=== PATIENT | female | born 1950 | race Caucasian/White ===

== ENCOUNTER 2017-01-06 21:11 | Observation (INO) | payer MEDICARE ==
[2017-01-06] MEDS ORDERED: DUONEB 0.5-3 MG/3 ml Neb IH ONE ×2 (21:25→21:33)
[2017-01-06] MEDS: Sodium Chloride 0.9% 1000 ML 1,000 ML IV SCH (21:32)
[2017-01-06 21:49] LABS: Mean Cell Volume 99.5 fl (78-100); Mean Corpuscular Hemoglobin 32.5 pg (26-32); Mean Platelet Volume 10.6 fl (6-9.5); Platelet Count 215 K/mm3 (150-450); Red Blood Count 4.15 M/mm3 (4.1-5.4); White Blood Count 23.7 K/mm3 (4.0-10.5)
[2017-01-06 22:02] LABS: BLOOD UREA NITROGEN 15 mg/dL (9-20); CHLORIDE 100 mEq/L (98-107); Carbon Dioxide 25.2 mEq/L (21-32); Glucose 116 MG/DL (70-110); Potassium 3.5 mEq/L (3.5-5.1); SODIUM 137 mEq/L (136-145)
[2017-01-06] MEDS ORDERED: Zofran 4 MG/2 ML VIAL IV ONE (22:15)
[2017-01-06] MEDS ORDERED: TORAdol 30 mg Injection IV ONE (22:15)
[2017-01-06] MEDS ORDERED: TORAdol 30 mg Injection ONE (22:19)
[2017-01-06] MEDS ORDERED: Zofran 4 MG/2 ML VIAL ONE (22:19)
--- NOTE | 2017-01-06 22:21 | ERPHSYRPT ---
- History of Present Illness Time Seen by Provider: 01/06/17 21:17 Source: patient, family, old records Exam Limitations: no limitations Patient Subjective Stated Complaint: isreal has had acough feels like its in her lungs, has had bottom lobe on right side of lung removed. states shes been coughing so hard its making her back hurt. patient has chronic back pain from pre-existing conditions with her back. Triage Nursing Assessment: pt alert nad orietned x3, able to ambulate well, gait is steady, intermittant coughing, lungs sounds diminished, pupils perrla2, pulses equal bilat radius, skin clean, dry, and intact, bowel sounds x4, pedal pulses present bilateral. Physician History: patient with increasing cough; now associated with pain and N&V with coughing paroxysm; no hemoptosis; no fever; no chills' ; no travel or exposures; ; still smokes some; heavy smoker; no fever; no chills; no DVT; Timing/Duration: week(s) (1-2), intermittent, gradual onset, worse Cough Quality/Degree: moderate, dry cough, productive cough (occasional tucker or yellow) Possible Cause: frequent episodes, chronic episodes, smoke exposure Modifying Factors: Improves With: albuterol inhaler, albuterol nebulizer, coughing Associated Symptoms: chest pain/soreness, cough, shortness of breath International travel in last 2 weeks: No Allergies/Adverse Reactions: tapentadol HCl [From Nucynta] Adverse Reaction (Severe, Verified 01/29/16 09:05) disoriented states "took for severe arthritis,fever,confusion,couldn't sleep" Home Medications: Levothyroxine Sodium 125 Mcg [Synthroid 125 Mcg] 125 mcg PO DAILY 06/08/13 [History] Venlafaxine HCl ER 75 mg [Effexor XR 75 MG] 150 mg PO DAILY 06/08/13 [ History] Fluticasone/Salmeterol [Advair 100-50 Diskus] 1 each IH BID 08/26/13 [History] Alprazolam 0.25 mg [xanAX 0.25 MG] 0.25 mg PO TID 10/12/15 [History] Fluticasone Propionate [Flonase NASAL] 1 spray NS DAILY 10/12/15 [History] Tizanidine HCl 4 mg [Zanaflex 4 MG] 4 mg PO BID 10/12/15 [History] Ipratropium/Albuterol Sulfate [Combivent Inhaler] 14.7 gm IH .PRN 11/09/15 [ History] Hydrocodone Bit/Acetaminophen [[place] 5-325 Tablet] 1 each PO Q6HPRN PRN [History] Hx Tetanus, Diphtheria Vaccination/Date Given: Yes (up to date) Hx Influenza Vaccination/Date Given: Yes Hx Pneumococcal Vaccination/Date Given: No - Review of Systems Constitutional: No Symptoms Eyes: No Symptoms Ears, Nose, & Throat: No Symptoms Respiratory: Cough, Dyspnea on Exertion (PAVON), Wheezing, No Cyanosis Cardiac: Chest Pain, No Palpitations, No Syncope Abdominal/Gastrointestinal: Nausea, Vomiting (with coughing paroxysm), No Abdominal Pain, No Diarrhea, No Hematemesis Genitourinary Symptoms: No Symptoms Musculoskeletal: Back Pain, No Neck Pain, No Fall, No Injury Skin: No Symptoms Neurological: No Symptoms Psychological: No Symptoms Endocrine: No Symptoms Hematologic/Lymphatic: No Symptoms Immunological/Allergic: No Symptoms - Past Medical History Pertinent Past Medical History: Yes Neurological History: No Pertinent History ENT History: No Pertinent History Cardiac History: No Pertinent History Respiratory History: COPD, Pneumonia, Other Endocrine Medical History: Hypothyroidism Musculoskeletal History: Arthritis GI Medical History: Hepatitis, Hernia, Ulcer History: No Pertinent History Psycho-Social History: Bipolar, Depression Female Reproductive Disorders: No Pertinent History Other Medical History: hep B, MRSA. Carpal tunnel. manic depressive - Past Surgical History Past Surgical History: Yes Neuro Surgical History: No Pertinent History Cardiac: Other Respiratory: Chest Surgery, Lobectomy Gastrointestinal: Cholecystectomy, Other Genitourinary: No Pertinent History Musculoskeletal: No Pertinent History Female Surgical History: Hysterectomy Other Surgical History: lobectomy, cut MRSA out of surgical wound, repositioned esophagus, wrapped the top of stomach - Social History Smoking Status: Current every day smoker How long have you smoked: 40 Exposure to second hand smoke: Yes Alcohol Use: Socially Drug Use: marijuana Patient Lives Alone: No Significant Family History: no pertinent family hx - Female History Hx Now: No - Nursing Vital Signs Nursing Vital Signs: Initial Vital Signs Temperature 97.9 F 08/04/17 21:11 Pulse Rate 107 H 01/06/17 21:11 Respiratory Rate 16 01/06/17 21:11 Blood Pressure 114/70 01/06/17 21:11 O2 Sat by Pulse Oximetry 96 01/06/17 21:11 Pain Scale Pain Intensity 4 - Physical Exam General Appearance: moderate distress, alert, thin Eye Exam: PERRL/EOMI, eyes nml inspection, No photophobia Ears, Nose, Throat Exam: normal ENT inspection, TMs normal, pharynx normal, moist mucous membranes Neck Exam: normal inspection, non-tender, supple, full range of motion, No meningismus, No JVD, No lymphadenopathy Respiratory Exam: respiratory distress (mild tachypnea), airway intact, diminished breath sounds, crackles/rales, wheezing, No normal breath sounds, No chest tenderness, No lungs clear, No pleural rub Cardiovascular Exam: regular rate/rhythm, normal heart sounds, normal peripheral pulses, tachycardia, capillary refill <2 sec, No murmur, No friction rub Gastrointestinal/Abdomen Exam: soft, normal bowel sounds, No tenderness, No mass , No guarding, No pulsatile mass, No rebound, No organomegaly Pelvic Exam: deferred Rectal Exam: deferred Back Exam: normal inspection, normal range of motion, No CVA tenderness, No vertebral tenderness, No rash Extremity Exam: normal inspection, normal range of motion, No pelvis stable, No calf tenderness, No michelle's sign, No pedal edema Neurologic Exam: alert, oriented x 3, cooperative, drug and alcohol counselor II-XII nml as tested, normal mood/affect, nml cerebellar function, nml station & gait, sensation nml Skin Exam: normal color, warm, dry, No rash, No petechiae, No cyanosis Lymphatic Exam: No adenopathy SpO2 Interpretation: borderline oxygenation SpO2: 94 Oxygen Delivery: Room Air - Course Nursing assessment & vital signs reviewed: Yes EKG Interpreted by Me: RATE (92), Sinus Rhythm, Left [place] Deviation, NORMAL INTERVALS, NORMAL QRS, NORMAL ST-T, Other (no change from 10-13-16) Rhythm Strip: Rate (92), Normal Sinus Rhythm - Radiology Exams Chest X-ray Interpretation: Interpreted by me, No Pneumothorax, Nml Heart Size, Infiltrates (suspect LLL; ), Other (post op changes; scarring RUL old) Ordered Tests: Active Orders 24 hr Category Date Time Status Bedrest with BRP/BSC ROUTINE Activity 01/07/17 00:16 Ordered Accucheck ACHS Care 01/07/17 00:16 Ordered Admission/Status Order ROUTINE Care 01/07/17 00:16 Ordered Protection Agent STAT Care 01/06/17 21:25 Active Code Status Order ROUTINE Care 01/07/17 00:16 Ordered EKG-ER Only STAT Care 01/06/17 21:25 Active Fall Protocol ROUTINE Care 01/07/17 00:18 Ordered IV Care Q6H Care 01/07/17 00:16 Ordered IV Insertion STAT Care 01/06/17 21:25 Active Skip Barboza, Apply ROUTINE Care 01/07/17 00:16 Ordered Weight,Daily 0600 Care 01/07/17 00:16 Ordered Regular Diet Diet 01/07/17 Breakfast Ordered CHEST 1 VIEW (PORTABLE) Stat Exams 01/06/17 21:26 Taken CHEST WITH CONTRAST [CT] Stat Exams 01/06/17 22:11 Taken BMP Stat Lab 01/06/17 21:40 Completed CBC W DIFF Stat Lab 01/06/17 21:40 Completed D-DIMER QUANTITATION Stat Lab 01/06/17 21:40 Completed Lactic Acid Stat Lab 01/06/17 21:35 Completed Manual Differential NC Stat Lab 01/06/17 21:40 Completed PROTIME WITH INR Stat Lab 01/06/17 21:40 Completed TROPONIN Q3H Lab 01/06/17 21:40 Completed TROPONIN Q3H Lab 01/07/17 00:30 Ordered TROPONIN Q3H Lab 01/07/17 03:30 Ordered TROPONIN Q3H Lab 01/07/17 06:30 Ordered TROPONIN Q3H Lab 01/07/17 09:30 Ordered Peak Expiratory Flow Rate BEFORE&AFTER NEB TX RT 01/07/17 00:18 Ordered Pulse Oximetry CONTINUOUS RT 01/07/17 00:18 Ordered Respiratory Nebulizer Q4H RT 01/07/17 00:16 Ordered Respiratory Nebulizer STAT RT 01/06/17 21:27 Active Respiratory Therapy Consult ROUTINE RT 01/07/17 00:16 Ordered Transfer Order Routine Transfer 01/07/17 00:15 Ordered Medication Summary Generic Name Dose Route Start Last Admin Trade Name Freq PRN Reason Stop Dose Admin Sodium Chloride 1,000 mls @ 100 mls/hr 01/06/17 21:30 01/06/17 21:32 Sodium Chloride 0.9% 1000 Ml IV 02/05/17 21:29 100 mls/hr .Q10H ASHA Administration Ceftriaxone Sodium/Dextrose 1 g in 50 mls @ 100 mls/hr 01/06/17 23:56 Rocephin 1 Gm-D5w 50 Ml Bag IV 01/07/17 00:25 STAT ONE Discontinued Medications Generic Name Dose Route Start Last Admin Trade Name Gila PRN Reason Stop Dose Admin Albuterol/Ipratropium 3 ml 01/06/17 21:25 01/06/17 21:34 Duoneb 0.5-3 Mg/3 Ml Neb IH 01/06/17 21:26 3 ml STAT ONE Administration Albuterol/Ipratropium Confirm 01/06/17 21:33 Duoneb 0.5-3 Mg/3 Ml Neb Administered 01/06/17 21:34 Dose 3 ml IH .STK-MED ONE Ceftriaxone Sodium/Dextrose Confirm 01/07/17 00:16 Rocephin 1 Gm-D5w 50 Ml Bag Administered 01/07/17 00:17 Dose 1 g in 50 mls @ ud IV .STK-MED ONE Ketorolac Tromethamine 30 mg 01/06/17 22:15 01/06/17 22:22 Toradol 30 Mg Injection IV 01/06/17 22:16 30 mg STAT ONE Administration Ketorolac Tromethamine Confirm 01/06/17 22:19 Toradol 30 Mg Injection Administered 01/06/17 22:20 Dose 30 mg .ROUTE .STK-MED ONE Ondansetron HCl 4 mg 01/06/17 22:15 01/06/17 22:22 Zofran 4 Mg/2 Ml Vial IV 01/06/17 22:16 4 mg STAT ONE Administration Ondansetron HCl Confirm 01/06/17 22:19 Zofran 4 Mg/2 Ml Vial Administered 01/06/17 22:20 Dose 4 mg .ROUTE .STK-MED ONE Lab/Rad Data: Laboratory Result Diagrams 01/06/17 21:40 01/06/17 21:40 Laboratory Results 01/06/17 01/06/17 01/06/17 Range/Units 21:40 21:40 21:40 WBC (4.0-10.5) K/mm3 RBC (4.1-5.4) M/mm3 Hgb (12.0-16.0) gm/dl Hct (35-47) % MCV (78-100) fl MCH (26-32) pg MCHC (32-36) g/dl RDW (11.5-14.0) % Plt Count (150-450) K/mm3 MPV (6-9.5) fl INR 1.18 (0.8-3.0) D-Dimer 1078 H* (0-500) ng/mL Sodium (136-145) mEq/L Potassium (3.5-5.1) mEq/L Chloride (98-107) mEq/L Carbon Dioxide (21-32) mEq/L Anion Gap (5-15) MEQ/L BUN (9-20) mg/dL Creatinine (0.55-1.30) mg/dl Estimated GFR ML/MIN Glucose (70-110) MG/DL Lactic Acid (0.4-2.0) Calcium (8.5-10.1) mg/dL Troponin I < 0.017 (0.000-0.056) ng/ml Influenza Type A Ag (NEGATIVE) Influenza Type B Ag (NEGATIVE) RSV (PCR) (Negative) 01/06/17 01/06/17 01/06/17 Range/Units 21:40 21:40 21:35 WBC 23.7 H (4.0-10.5) K/mm3 RBC 4.15 (4.1-5.4) M/mm3 Hgb 13.5 (12.0-16.0) gm/dl Hct 41.3 (35-47) % MCV 99.5 (78-100) fl MCH 32.5 H (26-32) pg MCHC 32.7 (32-36) g/dl RDW 13.0 (11.5-14.0) % Plt Count 215 (150-450) K/mm3 MPV 10.6 H (6-9.5) fl INR (0.8-3.0) D-Dimer (0-500) ng/mL Sodium 137 (136-145) mEq/L Potassium 3.5 (3.5-5.1) mEq/L Chloride 100 (98-107) mEq/L Carbon Dioxide 25.2 (21-32) mEq/L Anion Gap 15.0 (5-15) MEQ/L BUN 15 (9-20) mg/dL Creatinine 0.69 (0.55-1.30) mg/dl Estimated GFR > 60 ML/MIN Glucose 116 H (70-110) MG/DL Lactic Acid (0.4-2.0) Calcium 9.5 (8.5-10.1) mg/dL Troponin I (0.000-0.056) ng/ml Influenza Type A Ag NEGATIVE (NEGATIVE) Influenza Type B Ag NEGATIVE (NEGATIVE) RSV (PCR) NEGATIVE (Negative) 01/06/17 Range/Units 21:35 WBC (4.0-10.5) K/mm3 RBC (4.1-5.4) M/mm3 Hgb (12.0-16.0) gm/dl Hct (35-47) % MCV (78-100) fl MCH (26-32) pg MCHC (32-36) g/dl RDW (11.5-14.0) % Plt Count (150-450) K/mm3 MPV (6-9.5) fl INR (0.8-3.0) D-Dimer (0-500) ng/mL Sodium (136-145) mEq/L Potassium (3.5-5.1) mEq/L Chloride (98-107) mEq/L Carbon Dioxide (21-32) mEq/L Anion Gap (5-15) MEQ/L BUN (9-20) mg/dL Creatinine (0.55-1.30) mg/dl Estimated GFR ML/MIN Glucose (70-110) MG/DL Lactic Acid 1.0 (0.4-2.0) Calcium (8.5-10.1) mg/dL Troponin I (0.000-0.056) ng/ml Influenza Type A Ag (NEGATIVE) Influenza Type B Ag (NEGATIVE) RSV (PCR) (Negative) reviewed - Progress Progress: improved (after meds), re-examined (after meds an d xr) Air Movement: fair Progress Note: 01/06/17 22:34 EKG ok; labs show elevated D Dimer; will get CT for PE; CXR old changes; ? new early infiltrate LLL; elevated CBC WBC - hx chronic; will get INR; ; lactic acid ok elevation 01/06/17 22:36 Troponin and INR ok; some relief of pain with meds; patient to CT ; at bedside 01/06/17 22:51 CT still pending; RSV and Influenza are all neg 01/06/17 23:[address]; Pain, N&V better;CT results pending; will monitor and recheck; breathing better; moving air better ; 01/06/17 23:01 sats 93% on RA 01/07/17 00:20 Dr Brittany Bruno consulted and accepted the patient for admission; patient and family notified; continues to improve; orders written Blood Culture(s) Obtained: Yes Antibiotics given: Yes Discussed with .: Other (Dr Brittany Bruno consulted, covering for Dr Burkett and accepted admission) Will see patient in: hospital (observation) Counseled pt/family regarding: lab results, diagnosis, need for follow-up, rad results, smoking cessation - Departure Time of Disposition: 00:22 Departure Disposition: Observation Clinical Impression: Acute exacerbation of COPD with asthma, infiltrate left lower lobe Condition: Serious Critical Care Time: Yes Critical Care Time(excluding separately billable procedures): 30-74 minutes Referrals: HARVINDER GILMORE [Primary Care Provider] -
[2017-01-06 22:23] LABS: INR 1.18 (0.8-3.0); PROTIME 13.4 SECONDS (9.95-12.35)
[2017-01-06] MEDS ORDERED: ROCEPHIN 1 Gm-D5w 50 ml Bag** 1 G/50 ML IVPB IV ONE (23:56)
[2017-01-07] MEDS ORDERED: ROCEPHIN 1 Gm-D5w 50 ml Bag** 1 G/50 ML IVPB IV ONE (00:16)
[2017-01-07 00:22] LABS: Total Cells Counted 100
[2017-01-07 00:23] LABS: Platelet Estimate NORMAL (NORMAL)
[2017-01-07] MEDS ORDERED: DUONEB 0.5-3 MG/3 ml Neb IH ONE (02:25)
[2017-01-07] MEDS ORDERED: DUONEB 0.5-3 MG/3 ml Neb IH SCH (03:00)
[2017-01-07] MEDS: solu-MEDROL 125 MG IV SCH ×2 (06:16→11:40)
[2017-01-07] MEDS: DUONEB 0.5-3 MG/3 ml Neb IH SCH ×3 (06:50→18:35)
[2017-01-07] MEDS ORDERED: Sodium Chloride 0.9% 1000 ML 1,000 ML ONE (07:48)
[2017-01-07] MEDS: Sodium Chloride 0.9% 1000 ML 1,000 ML IV SCH ×2 (07:48→17:41)
--- NOTE | 2017-01-07 08:20 | XRAY ---
Indication: Short of breath, cough, and elevated D dimer. COPD. Multiple contiguous axial images obtained through the chest using 80 cc Isovue 370 contrast and PE protocol. Comparison: April 08, 2016. There is good opacification of the pulmonary arteries to include the lobar and segmental branches. No filling defect or pulmonary embolus. Heart is not enlarged. Aorta is normal in course and caliber. No pathologic mediastinal/hilar lymphadenopathy. Again small hiatal hernia. Examination of the lung parenchyma again demonstrates diffuse pulmonary emphysema with partial right lung resection with right lung volume loss, fibrosis/scarring, and translation of the heart/mediastinal structures. New patchy left lower lobe consolidating airspace disease. No effusion. Bony thorax intact again with minimal degenerative changes throughout the spine. Limited upper abdomen unremarkable. Impression: 1. Negative for pulmonary embolus. 2. New left lower lobe consolidating airspace disease. 3. Stable pulmonary emphysema, right lung postsurgical changes, and hiatal hernia. Comment: Preliminary interpretation was made by [facility]. No discrepancy. CTDI 10.00
--- NOTE | 2017-01-07 08:23 | XRAY ---
Indication: Cough and short of breath. COPD. Comparison: March 29, 2016. Portable chest again hyperinflated with right lung postsurgical changes. New medial left base interstitial alveolar opacity. No consolidation or large effusion. Heart is not enlarged. Bony thorax intact. Impression: New medial left base interstitial alveolar opacity. Stable COPD and right lung postsurgical changes.
[2017-01-07] MEDS: Pepcid 20 MG VIAL IV SCH ×2 (10:25→21:18)
[2017-01-07] MEDS: Nicoderm CQ 21 MG TOP SCH (11:41)
[2017-01-07] MEDS ORDERED: xanAX 0.25 MG PO PRN (12:59)
[2017-01-07] MEDS ORDERED: NovoLOG Insulin SQ PRN (13:02)
[2017-01-07] MEDS ORDERED: MEDICATION INTERVENTION MC PRN (13:10)
[2017-01-07] MEDS: Zithromax 250 MG TABLET PO SCH (14:01)
[2017-01-07] MEDS: SYNTHROID 125 MCG PO SCH (14:01)
[2017-01-07] MEDS: Protonix 40MG Tablet PO SCH (14:01)
[2017-01-07] MEDS: ENOXAPARIN SODIUM SQ SCH (14:01)
[2017-01-07] MEDS: Effexor XR 75 MG PO SCH (14:01)
--- NOTE | 2017-01-07 15:30 | HP ---
HISTORY OF PRESENT ILLNESS: The patient is a 66 year-old individual, admitted to the hospital with chief complaint of having shortness of breath, cough with sputum production, started a couple of days before admission. The patient does have a history of COPD. She reported to the emergency room with symptoms of shortness of breath, wheezing and hence was hospitalized for COPD. The patient has again, history of COPD and reflux disease, and chronic pain syndrome, hypothyroidism, anxiety, depression, for which she takes medications. MEDICATIONS: The patient's medications include Nucynta, levothyroxine 25 mcg daily, Effexor 75 mcg daily, Advair 100/50 1 puff b.i.d., alprazolam 0.25 mg t.i.d., Flonase, tizanidine 4 mg b.i.d., and DuoNebs, hydrocodone APAP 5/325 q.6h p.r.n. REVIEW OF SYSTEMS: No fever, no weight loss. HEENT: Normal. PULMONARY: Positive for shortness of breath and wheezing. GI: No apparent reflux. EXTREMITIES: No edema. NEUROLOGIC: Intact. SOCIAL HISTORY: Still smoking, has history of 40 pack year. Can smoke about a pack a day. PAST MEDICAL HISTORY: As mentioned above, has history of COPD and pneumatized, hypothyroidism, hiatal hernia, also bipolar depression. Also has history of carpal tunnel. SURGICAL HISTORY: Includes lobectomy and surgical wound, had surgery for MRSA. The wound has repositioned itself. PHYSICAL EXAMINATION: GENERAL: The patient appears reasonably comfortable, not I acute distress. VITAL SIGNS: Blood pressure 114/70, pulse 170, respiratory rate 16, temperature 97.9. 96% saturation. HEENT: Pupils are reactive. NECK: No JVD or thyromegaly. No lymphadenopathy. CHEST: Good air entry bilaterally. The patient has bilateral rhonchi present. HEART: S1, S2 normal. ABDOMEN: Soft, nontender, bowel sounds present. EXTREMITIES: No edema. NEUROLOGIC: Alert. No focal deficits. LAB DATA: Showed white count of 23.7, hemoglobin 13.5, hematocrit 41.3. Patient had a D-dimer of 1078, however, CT scan was negative for pulmonary embolism. MCV of 99.5. The patient has a sodium of 137, potassium 3.5, chloride 100, BUN of 15, creatinine of 0.69, and glucose of 1116. Calcium 9.5. Patient had a lactic acid of 1. ASSESSMENT/PLAN: 1. Chronic obstructive pulmonary disease with exacerbation started on IV steroids. Inhalation bronchodilators with IV Rocephin, p.o. Zithromax at this time. 2. Will continue other medications including for anxiety and depression, reflux disease . 3. Hyperglycemia, for which the patient will be kept on Accu-Cheks and Humalog insulin coverage, low dose. 4. The patient will be put on deep vein thrombosis prophylaxis.
[2017-01-07] MEDS: solu-MEDROL 40 MG IV SCH (17:42)
[2017-01-07] MEDS ORDERED: TYLENOL 325 MG PO PRN (18:17)
[2017-01-07] MEDS: PULMICORT 0.5 MG/2 ML RESPULES IH SCH (18:35)
[2017-01-07] MEDS: ADVAIR HFA 45/21 COMMON CANISTER IH SCH (18:37)
[2017-01-07] MEDS ORDERED: NON-FORMULARY ITEM (Fluticasone/Salmeterol [Advair 100-50 Diskus] 1 EACH) IH SCH (22:00)
[2017-01-07] MEDS ORDERED: ROCEPHIN 1 Gm-D5w 50 ml Bag** 1 G/50 ML IVPB IV SCH (22:00)
[2017-01-08] MEDS: solu-MEDROL 40 MG IV SCH ×3 (00:04→12:21)
[2017-01-08] MEDS: DUONEB 0.5-3 MG/3 ml Neb IH SCH ×3 (01:23→13:07)
[2017-01-08] MEDS: Sodium Chloride 0.9% 1000 ML 1,000 ML IV SCH (04:14)
[2017-01-08] MEDS ORDERED: Advair Hfa 115/21 Common canister IH SCH (07:00)
[2017-01-08] MEDS: PULMICORT 0.5 MG/2 ML RESPULES IH SCH (07:03)
[2017-01-08] MEDS: ADVAIR HFA 45/21 COMMON CANISTER IH SCH (07:04)
[2017-01-08] MEDS: Pepcid 20 MG VIAL IV SCH (08:57)
[2017-01-08] MEDS: SYNTHROID 125 MCG PO SCH (08:57)
[2017-01-08] MEDS: Protonix 40MG Tablet PO SCH (08:57)
[2017-01-08] MEDS: Nicoderm CQ 21 MG TOP SCH (08:57)
[2017-01-08] MEDS: Effexor XR 75 MG PO SCH (08:57)
[2017-01-08] MEDS: Zithromax 250 MG TABLET PO SCH (08:57)
[2017-01-08] MEDS: ENOXAPARIN SODIUM SQ SCH (08:57)
[2017-01-08] MEDS ORDERED: Flonase NASAL NS SCH (10:00)
[2017-01-08 12:06] VITALS: BP 131/63
[2017-01-08 13:08] VITALS: PULSE 88; O2SAT 97
--- NOTE | 2017-01-09 11:00 | DS ---
DISCHARGE DIAGNOSIS:1. CHRONIC OBSTRUCTIVE PULMONARY DISEASE WITH ACUTE EXACERBATION. 2. PATIENT DOES HAVE STEROID INDUCED HYPERGLYCEMIA. 3. ALSO, HAS A HISTORY OF ANXIETY/DEPRESSION AND REFLUX DISEASE FOR WHICH SHE SEEMS TO BE PRETTY REASONABLY OKAY. WILL CONTINUE PRESENT MEDICATION. BRIEF HISTORY: Patient hospitalized with the chief complaint of increasing shortness of breath, cough with sputum production. Was treated with IV steroid inhalation bronchodilators and inhalation steroids and IV antibiotics. Patient done reasonably well, significantly improved. O2 saturation is in the mid 90s on room air and patient is sitting comfortably. Wheezing has significantly improved. Cough has significantly improved. Patient at this time seems stable to go home. Will be outpatient follow-up. Patient will be sent home with PO steroids and oral antibiotics along with inhalation bronchodilator treatments. Continue with the rest of her home medications.
== END 2017-01-08 13:30 | disposition home or self-care (01) ==
LOC: ED 21:11 → MED SURG 01-07 00:34
PROVIDERS: ADMIT General Practice; ATTEND General Practice
DX: R73.9 Hyperglycemia, unspecified (principal); T38.0X5A Adverse effect of glucocorticoids and synthetic analogues, initial encounter; F41.8 Other specified anxiety disorders; K21.9 Gastro-esophageal reflux disease without esophagitis; E03.9 Hypothyroidism, unspecified; G89.4 Chronic pain syndrome; Z79.899 Other long term (current) drug therapy; Z72.0 Tobacco use; K44.9 Diaphragmatic hernia without obstruction or gangrene; F31.9 Bipolar disorder, unspecified; Z86.14 Personal history of Methicillin resistant Staphylococcus aureus infection
CPT/HCPCS: 36000; 36415; 71010; 71260; 80048; 82962; 83036; 83605; 84484; 85025; 85379; 85610; 87631; 93005; 93041; 94150; 94640; 94760; 96360; 96361; 96374; 96375; 99285; G0378; J0696; J1650; J1885; J2405; J2920; J2930; A9270-GY

== ENCOUNTER 2017-12-04 08:57 | Day surgery (SDC) | payer MEDICARE ==
--- NOTE | 2017-12-04 08:10 | HP ---
DATE OF SURGERY: 12/04/2017 HISTORY OF PRESENT ILLNESS: The patient is a 67 year-old with apparent dysphagia worse recently, using fiber and laxatives not helping out, increased bloating and gas. No bloody stools. She has been followed by a doctor for HPV. She had endoscope on her last visit. She is in need of follow up colonoscopy given her change in bowel habits. PAST MEDICAL HISTORY: Arthritis, reflux, hypothyroidism, history of hiatal hernia in the past, tremor disorders. Hypothyroidism. PAST SURGICAL HISTORY: Hernia surgery and hysterectomy in the past. Lung surgery. Carpal tunnel. 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 Polyps in the past. Cholecystectomy in the past. MEDICATIONS: Venlafaxine, levothyroxine, fluconazole, Alprazolam, Flonase, Combivent, pantoprazole, oxybutynin, Primidone, MiraLAX powder. ALLERGIES: NUCYNTA. SOCIAL HISTORY: Half a pack per day smoker, denies alcohol abuse. REVIEW OF SYSTEMS: Twelve systems reviewed per admission assessment. No chest pain or palpitations other systems negative or noncontributory as above and per preadmission questionnaire. PHYSICAL EXAMINATION: GENERAL: No acute distress. HEENT: Sclerae nonicteric. NECK: No JVD. CHEST: Equal excursion, nonlabored breathing. CVS: Regular rate and rhythm. ABDOMEN: Soft. No peritoneal signs. EXTREMITIES: No significant edema. NEURO: Alert, oriented, moving extremities symmetrically. No gross motor deficits noted. IMPRESSION: Change in bowel habits. Need for follow up colonoscopy. I feel she is a candidate. Risks and benefits, shown the risk sheet, explained in detail including but not limited to bleeding or infection, risk of bowel injury or perforation possibly requiring open procedure, risk of missed or nondiagnosis or incomplete exam possibly requiring barium enema, other studies or procedures, general risk of anesthesia or sedation, risk of bowel prep, postoperative risk of nausea, vomiting or cramping but not limited to. She understands and agrees to the planned procedure and will proceed with outpatient colonoscopy under MAC anesthesia.
[~2017-12-04 08:57] MED LIST: Lactated Ringers 1,000 ML IV ONE; Lactated Ringers 1,000 ML IV SCH
[2017-12-04 10:41] VITALS: BP 127/71; PULSE 60; O2SAT 99
== END 2017-12-04 11:08 | disposition home or self-care (01) ==
LOC: SDC 08:57
PROVIDERS: ATTEND Surgery
DX: Z12.11 Encounter for screening for malignant neoplasm of colon (principal); Z53.09 Procedure and treatment not carried out because of other contraindication; R19.4 Change in bowel habit; R13.10 Dysphagia, unspecified; K21.9 Gastro-esophageal reflux disease without esophagitis; M19.90 Unspecified osteoarthritis, unspecified site; E03.9 Hypothyroidism, unspecified; K44.9 Diaphragmatic hernia without obstruction or gangrene; Z86.010 Personal history of colon polyps; Z79.899 Other long term (current) drug therapy

== ENCOUNTER 2017-12-18 09:14 | Day surgery (SDC) | payer MEDICARE ==
[~2017-12-18 09:14] MED LIST changes: -Lactated Ringers 1,000 ML IV ONE
[2017-12-18] MEDS ORDERED: DIPRIVAN 200 MG/20 ML IV ONE (09:15)
--- NOTE | 2017-12-18 09:43 | HP ---
DATE OF SURGERY: 12/18/2017 HISTORY OF PRESENT ILLNESS: The patient is a 67 year-old with some problems with change in bowel habits, recently increased bloating, worse with constipation recently. No bloody stools. She is in need of follow up colonoscopy. She is followed by a doctor for HPV. She had endoscopy three months ago. She is in need of full colonoscopy. 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 PAST SURGICAL HISTORY: Hysterectomy, lung surgery, carpal tunnel, polyps and had anal lesion removed. History of hiatal hernia repair in the past. MEDICATIONS: Venlafaxine, levothyroxine, fluconazole, alprazolam, Flonase, Combivent, pantoprazole, oxybutynin, primidone, polyethylene glycol powder. ALLERGIES: NUCYNTA. FAMILY HISTORY: Negative in regards to this problem. SOCIAL HISTORY: Half pack per day smoker, denies alcohol abuse. REVIEW OF SYSTEMS: Twelve systems reviewed per admission assessment. No chest pain or palpitations other systems negative or noncontributory as above and per preadmission questionnaire. PHYSICAL EXAMINATION: GENERAL: No acute distress. HEENT: Sclerae nonicteric. NECK: No JVD. CHEST: Equal excursion, nonlabored breathing. CVS: Regular rate and rhythm. ABDOMEN: Soft. No peritoneal signs. EXTREMITIES: No significant edema. NEURO: Alert, moving extremities symmetrically. No gross motor deficits noted. RECTAL: Deferred timed to endoscopy exam. IMPRESSION: Change in bowel habits, history of polyps in the past. She is in need of follow up colonoscopy. Risks and benefits explained in detail including but not limited to bleeding or infection, risk of bowel injury or perforation possibly requiring open procedure, risk of missed or nondiagnosis or incomplete exam possibly requiring barium enema, other studies or procedures, general risk of anesthesia or sedation but not limited to. There is also the possibility of inability to diagnose the etiology of her symptoms. She understands and agrees to the planned procedure and will proceed with outpatient colonoscopy.
[2017-12-18 09:47] VITALS: O2SAT 98
[2017-12-18] MEDS ORDERED: Lactated Ringers 1,000 ML IV ONE (09:56)
[2017-12-18 13:55] VITALS: PULSE 72
[2017-12-18 14:06] VITALS: BP 150/81
--- NOTE | 2017-12-19 08:32 | OP ---
SURGERY DATE/TIME: 12/18/2017 1246 PREOPERATIVE DIAGNOSIS: History of polyps, history of change in bowel habits of increased constipation. POSTOPERATIVE DIAGNOSES: 1) Very poor prep limiting colon exam. 2) Very tortuous colon. 3) Small polyp ascending colon. 4) Small raised lesion versus early polyp or hyperplastic lesion ascending colon, rectosigmoid colon and rectum. 5) Pancolonic diverticulosis. 6) Small internal and external hemorrhoids. PROCEDURES: 1) Colonoscopy to cecum. 2) Hot biopsy polypectomy small ascending colon polyp. 3) Hot biopsy small raised lesion versus hyperplastic lesion versus early polyp ascending rectosigmoid colon and rectum. 4) Random cold biopsy of colon to evaluate for microscopic colitis. SURGEON: Dr. Jason El. ANESTHESIA: MAC. ESTIMATED BLOOD LOSS: Minimal. INDICATIONS: As noted above. Risks and benefits explained in detail but not limited to and consent obtained. DESCRIPTION OF PROCEDURE AND FINDINGS: The patient is taken to the endoscopy room. MAC anesthesia introduced. After official time out and no disagreement with planned procedure, digital rectal exam did not reveal any rectal masses.Video colonoscope inserted and passed up through the tortuous sigmoid, descending, very tortuous transverse colon. With position changes and positioning on her back for most of the case external pressure, the scope slowly and carefully passed down the transverse colon. She had very redundant ascending colon and transverse colon finally reaching the right lower quadrant. Appendiceal area and valve area were visualized. Prep was very poor very much limited the exam with large amount of solid and semisolid and liquidy stool throughout the colon very much limited the exam for small lesions. The scope was slowly and carefully withdrawn. A small raised lesion ascending colon removed with hot biopsy forceps. Whether this was just simple hyperplasia or not was unclear. She did have adenomatous appearing polyp about 3 mm in size removed with hot biopsy polypectomy with brief bursts of cautery. Good hemostasis noted. Appeared to have viable base. The scope is slowly and carefully withdrawn. She did have pancolonic diverticulosis. Very tortuous redundant colon. The scope is slowly and carefully withdrawn. She did have pancolonic diverticulosis. The scope is withdrawn back to rectosigmoid area. A few small raised lesions versus hyperplastic lesion versus early polyp removed with hot biopsy forceps. This is also again accomplished in the rectum with hot biopsy brief bursts of cautery and hot biopsy forceps removed. She had some small internal and external hemorrhoids. Otherwise there were no signs of any large polyps, masses or obstructing lesions. Again, there was very tortuous colon and very, very poor prep limiting the exam for small lesions. There is no obvious obstructing lesions throughout the colon. Random cold biopsy had been taken from the colon to evaluate for microscopic colitis. The patient tolerated the procedure well. There were no immediate complications. There was no family available to discuss the findings with. I will see her back in the office in a couple of weeks.
== END 2017-12-18 14:17 | disposition home or self-care (01) ==
LOC: SDC 09:14
PROVIDERS: ATTEND Surgery
DX: Q43.8 Other specified congenital malformations of intestine (principal); R19.4 Change in bowel habit; K63.5 Polyp of colon; K63.9 Disease of intestine, unspecified; K57.90 Diverticulosis of intestine, part unspecified, without perforation or abscess without bleeding; K64.8 Other hemorrhoids; K64.4 Residual hemorrhoidal skin tags; M19.90 Unspecified osteoarthritis, unspecified site; K21.9 Gastro-esophageal reflux disease without esophagitis; E03.9 Hypothyroidism, unspecified; K44.9 Diaphragmatic hernia without obstruction or gangrene; R25.1 Tremor, unspecified; Z79.899 Other long term (current) drug therapy
CPT/HCPCS: 88305; J2704

== ENCOUNTER 2019-05-06 22:18 | Emergency (ER) | payer MEDICARE ==
[2019-05-06] MEDS ORDERED: Sodium Chloride 0.9% 1000 ML 1,000 ML IV STA (22:40)
--- NOTE | 2019-05-06 22:42 | ERPHSYRPT ---
- History of Present Illness Historian: patient Exam Limitations: no limitations Physician History: Chest pain that began 90 minutes ago after having a coughing fit 45 minutes before it occurred. Patients chest tightness resolved after one SL nitroglycerin and 4 baby aspirin given by EMS. Timing/Duration: today, hour(s) (1.5) Activities at Onset: none Quality: tightness Location: other (left chest) Chest Pain Radiation: no radiation Severity of Pain-Max: severe Severity of Pain-Current: none Modifying Factors: Worsens With: coughing (coughed 45 minutes before chest pain occurred) Associated Symptoms: hurts to breathe, No nausea, No vomiting, No palpitations, No heartburn, No abdominal pain, No shortness of breath, No cough, No diaphoresis, No chills, No fever, No fatigue, No weakness, No swelling/lump in chest, No syncope, No rash, No headache, No dizziness, No edema, No back pain Prior Chest Pain/Cardiac Workup: no prior chest pain, no prior cardiac workup Nitro Today/Relief: 0.4 mg x 1, provided by EMS, complete relief Aspirin Treatment Today: 81 mg x 4, provided by EMS Allergies/Adverse Reactions: tapentadol HCl [From Nucynta] Adverse Reaction (Severe, Verified 05/07/19 00:57) disoriented states "took for severe arthritis,fever,confusion,couldn't sleep" Home Medications: Venlafaxine HCl ER 75 mg [Effexor XR 75 MG] 150 mg PO DAILY 06/08/13 [ History] Oxybutynin Chloride 10 mg Xl [Ditropan Xl 10 MG] 10 mg PO DAILY 11/27/17 [ History] Primidone 50 MG [Mysoline 50Mg] 50 mg PO QID 11/27/17 [History] Alprazolam 1 mg [Xanax 1 mg] 1 mg PO BID PRN 05/06/19 [History] Fluticasone/Salmeterol [Advair 250-50 Diskus] 1 each IH BID 05/06/19 [History] Mirtazapine 45 mg PO DAILY 05/06/19 [History] Valacyclovir HCl [Valtrex] 500 mg PO DAILY 05/06/19 [History] Hx Tetanus, Diphtheria Vaccination/Date Given: Yes (up to date) Hx Influenza Vaccination/Date Given: Yes Hx Pneumococcal Vaccination/Date Given: No - Review of Systems Constitutional: No Fever, No Chills Eyes: No Eye Pain, No Vision Changes Ears, Nose, & Throat: No Mouth Swelling, No Painful Swallowing Respiratory: No Cough, No Dyspnea Cardiac: Chest Pain, No Edema, No Syncope Abdominal/Gastrointestinal: No Abdominal Pain, No Nausea, No Vomiting, No Diarrhea Genitourinary Symptoms: No Dysuria, No Hematuria, No Flank Pain Musculoskeletal: No Back Pain, No Neck Pain Skin: No Rash Neurological: No Dizziness, No Focal Weakness, No Headache, No Sensory Changes Psychological: No Emotional Lability Endocrine: No Excessive Sweating Hematologic/Lymphatic: No Easy Bleeding, No Easy Bruising All Other Systems: Reviewed and Negative - Past Medical History Pertinent Past Medical History: Yes Neurological History: No Pertinent History ENT History: No Pertinent History Cardiac History: No Pertinent History Respiratory History: COPD, Pneumonia, Other Endocrine Medical History: Hypothyroidism Musculoskeletal History: Arthritis GI Medical History: Hepatitis, Hernia, Ulcer History: No Pertinent History Psycho-Social History: Bipolar, Depression Female Reproductive Disorders: No Pertinent History Other Medical History: hep B, MRSA. Carpal tunnel. manic depressive - Past Surgical History Past Surgical History: Yes Neuro Surgical History: No Pertinent History Cardiac: Other Respiratory: Chest Surgery, Lobectomy Gastrointestinal: Cholecystectomy, Other Genitourinary: No Pertinent History Musculoskeletal: No Pertinent History, Orthopedic Surgery Female Surgical History: Hysterectomy Other Surgical History: lobectomy right lower , cut MRSA out of surgical wound of right side/lung, repositioned esophagus, wrapped the top of stomach, bilat little toe surgery, states "stomach acid into lung and caused infection before my surgery" - Social History Smoking Status: Current every day smoker How long have you smoked: 40 plus yr Exposure to second hand smoke: Yes Alcohol Use: Socially Drug Use: marijuana Patient Lives Alone: No Significant Family History: no pertinent family hx - Nursing Vital Signs Nursing Vital Signs: Initial Vital Signs Temperature 98.1 F 05/06/19 22:28 Pulse Rate 72 05/06/19 22:28 Respiratory Rate 16 05/06/19 22:28 Blood Pressure 108/70 05/06/19 22:28 O2 Sat by Pulse Oximetry 94 L 05/06/19 22:28 Pain Scale Pain Intensity 0 - Physical Exam General Appearance: no apparent distress, alert Eye Exam: PERRL/EOMI, eyes nml inspection, No scleral icterus, No pale conjunctivae Ears, Nose, Throat Exam: normal ENT inspection, pharynx normal, moist mucous membranes Neck Exam: normal inspection, non-tender, supple, full range of motion, No meningismus, No Brudzinski, No JVD Respiratory Exam: normal breath sounds, lungs clear, No respiratory distress, No diminished breath sounds, No crackles/rales, No rhonchi, No wheezing, No stridor Cardiovascular Exam: regular rate/rhythm, normal heart sounds, normal peripheral pulses, capillary refill <2 sec, No friction rub Gastrointestinal/Abdomen Exam: soft, No tenderness, No mass Back Exam: normal inspection, No CVA tenderness, No vertebral tenderness Extremity Exam: normal inspection, normal range of motion, pelvis stable, No calf tenderness, No michelle's sign, No swelling Neurologic Exam: alert, oriented x 3, cooperative, 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 as tested, normal mood/affect, sensation nml, No motor deficits Skin Exam: normal color, warm, dry, No jaundice, No cyanosis SpO2 Interpretation: normal O2 Delivery: Room Air - Course Nursing assessment & vital signs reviewed: Yes EKG Interpreted by Me: RATE (71), Sinus Rhythm, NORMAL AXIS, NORMAL INTERVALS, NORMAL QRS, NORMAL ST-T, Other (no appreciable change in comparison to EKG from 01/06/2017) - Radiology Exams Chest X-ray Interpretation: Interpreted by me, Reviewed by me, Negative, No Fracture, No Pneumonia, No Pneumothorax, Nml Alignment, Nml Heart Size, No Infiltrates, Nml Mediastinum Ordered Tests: Active Orders 24 hr Category Date Time Status Supervisor Doping STAT Care 05/06/19 22:40 Active EKG-ER Only STAT Care 05/06/19 22:40 Active IV Insertion STAT Care 05/06/19 22:40 Active CHEST 1 VIEW (PORTABLE) Stat Exams 05/06/19 22:40 Taken CBC W DIFF Stat Lab 05/06/19 22:55 Completed CK-Creatinine Phosphokinase Stat Lab 05/06/19 22:55 Completed CMP Stat Lab 05/06/19 22:55 Completed MAGNESIUM Stat Lab 05/06/19 22:55 Completed NT PRO BNP Stat Lab 05/06/19 22:55 Completed PROTIME WITH INR Stat Lab 05/06/19 22:55 Completed PTT Stat Lab 05/06/19 22:55 Completed TROPONIN Q3H Lab 05/06/19 22:55 Completed TROPONIN Q3H Lab 05/07/19 01:51 Completed TROPONIN Q3H Lab 05/07/19 04:45 Ordered TROPONIN Q3H Lab 05/07/19 07:45 Ordered TROPONIN Q3H Lab 05/07/19 10:45 Ordered Medication Summary Discontinued Medications Generic Name Dose Route Start Last Admin Trade Name Freq PRN Reason Stop Dose Admin Calcium Carbonate/Glycine 750 mg 05/07/19 00:22 05/07/19 00:34 Tums Ex 750 Mg PO 05/07/19 00:23 750 mg DAILY ONE Administration Sodium Chloride 1,000 mls @ 999 mls/hr 05/06/19 22:40 05/07/19 00:45 Sodium Chloride 0.9% 1000 Ml IV 05/06/19 23:40 Infused .Q1H1M STA Infusion Sodium Chloride Confirm 05/06/19 22:55 Sodium Chloride 0.9% 1000 Ml Administered 05/06/19 22:56 Dose 1,000 mls @ ud .ROUTE .STK-MED ONE Lab/Rad Data: Laboratory Result Diagrams 05/06/19 22:55 05/06/19 22:55 Laboratory Results 05/07/19 05/06/19 05/06/19 Range/Units 01:51 22:55 22:55 WBC (4.0-10.5) K/mm3 RBC (4.1-5.4) M/mm3 Hgb (12.0-16.0) gm/dl Hct (35-47) % MCV (78-100) fl MCH (26-32) pg MCHC (32-36) g/dl RDW (11.5-14.0) % Plt Count (150-450) K/mm3 MPV (6-9.5) fl Gran % (36.0-66.0) % Eos # (Auto) (0-0.5) Absolute Lymphs (auto) (1.0-4.6) Absolute Monos (auto) (0.0-1.3) Lymphocytes % (24.0-44.0) % Monocytes % (0.0-12.0) % Eosinophils % (0.00-5.0) % Basophils % (0.0-0.4) % Absolute Granulocytes (1.4-6.9) Basophils # (0-0.4) PT (9.95-12.35) SECONDS INR (0.8-3.0) APTT (25.3-37.0) SECONDS Sodium (137-145) mmol/L Potassium (3.5-5.1) mmol/L Chloride (98-107) mmol/L Carbon Dioxide (22-30) mmol/L Anion Gap (5-15) MEQ/L BUN (7-17) mg/dL Creatinine (0.52-1.04) mg/dL Estimated GFR ML/MIN Glucose (74-106) mg/dL Calcium (8.4-10.2) mg/dL Magnesium 1.7 (1.6-2.3) mg/dL Total Bilirubin (0.2-1.3) mg/dL AST (14-36) U/L ALT (0-35) U/L Alkaline Phosphatase (38-126) U/L Creatine Kinase (30-135) U/L Troponin I < 0.012 < 0.012 (0.000-0.034) ng/mL NT-Pro-B Natriuret Pep (0-900) pg/mL Serum Total Protein (6.3-8.2) g/dL Albumin (3.5-5.0) g/dL 05/06/19 05/06/19 05/06/19 Range/Units 22:55 22:55 22:55 WBC 9.9 (4.0-10.5) K/mm3 RBC 3.79 L (4.1-5.4) M/mm3 Hgb 12.9 (12.0-16.0) gm/dl Hct 38.8 (35-47) % MCV 102.4 H (78-100) fl MCH 34.0 H (26-32) pg MCHC 33.2 (32-36) g/dl RDW 12.4 (11.5-14.0) % Plt Count 272 (150-450) K/mm3 MPV 10.1 H (6-9.5) fl Gran % 77.0 H (36.0-66.0) % Eos # (Auto) 0.14 (0-0.5) Absolute Lymphs (auto) 1.16 (1.0-4.6) Absolute Monos (auto) 0.95 (0.0-1.3) Lymphocytes % 11.8 L (24.0-44.0) % Monocytes % 9.6 (0.0-12.0) % Eosinophils % 1.4 (0.00-5.0) % Basophils % 0.2 (0.0-0.4) % Absolute Granulocytes 7.58 H (1.4-6.9) Basophils # 0.02 (0-0.4) PT 12.4 H (9.95-12.35) SECONDS INR 1.10 (0.8-3.0) APTT 31.7 (25.3-37.0) SECONDS Sodium 137 (137-145) mmol/L Potassium 3.7 (3.5-5.1) mmol/L Chloride 102 (98-107) mmol/L Carbon Dioxide 26 (22-30) mmol/L Anion Gap 11.5 (5-15) MEQ/L BUN 11 (7-17) mg/dL Creatinine 0.51 L (0.52-1.04) mg/dL Estimated GFR > 60.0 ML/MIN Glucose 103 (74-106) mg/dL Calcium 9.4 (8.4-10.2) mg/dL Magnesium (1.6-2.3) mg/dL Total Bilirubin 0.30 (0.2-1.3) mg/dL AST 19 (14-36) U/L ALT 13 (0-35) U/L Alkaline Phosphatase 53 (38-126) U/L Creatine Kinase 51 (30-135) U/L Troponin I (0.000-0.034) ng/mL NT-Pro-B Natriuret Pep 99.1 (0-900) pg/mL Serum Total Protein 7.4 (6.3-8.2) g/dL Albumin 3.8 (3.5-5.0) g/dL - Progress Progress: re-examined Air Movement: good Progress Note: 05/06/19 23:35 Patient has no chest pain throughout her time in the emergency department after getting one SL Nitroglycerin from EMS prior to coming into the emergency department 05/07/19 02:57 Patient is chest pain free. Patient has remained in sinus rhythm throughout her time in the emergency department. HEART score: 3, 0.9-1.7% risk of MACE in the next 6 weeks with two negative troponins places the patient at low risk for any acute cardiac as well as any pulmonary, vascular or infectious etiologies causing her chest pain at this visit. Patient will be discharged home to follow-up with her provider in the am of 05/07/2019 to continue evaluation of her symptoms as an outpatient with further testing performed as an outpatient. Blood Culture(s) Obtained: No Antibiotics given: No Counseled pt/family regarding: lab results, diagnosis, need for follow-up, rad results - Departure Departure Disposition: Home Clinical Impression: Acute chest pain Condition: Good Critical Care Time: No Referrals: HARVINDER GILMORE [Primary Care Provider] - 05/07/19 Instructions: Chest Pain (DC), Angina (DC) Additional Instructions: Discharge/Care Plan HIRALMARCO A was seen on 05/07/19 in the Emergency Room. The patient was counseled regarding Diagnosis,Lab results, Imaging studies, need for follow up and when to return to the Emergency Room. Return immediately back to the emergency department if any recurrent chest pain, shortness of breath, abdominal pain, fever, skin rash, or any other concerning signs or symptoms that were not present at today's emergency room visit for immediate reevaluation in the emergency department. Prescriptions given: None Discharge Note I have spoken with the patient and family. I have explained the patient's condition, diagnosis and treatment plan based on the information available to me at this time. I have answered the patient's and family's questions and addressed any concerns. The patient and family have a good understanding of the patient's diagnosis, condition and treatment plan as can be expected at this point. The vital signs have been stable. The patient's condition is stable and appropriate for discharge from the emergency department. The patient will pursue further outpatient evaluation with the primary care physician or other designated or consulting physician as outlined in the discharge instructions. The patient and family are agreeable to this plan of care and follow-up instructions have been explained in detail. The patient and family have received these instruction. The patient and family are aware that any significant change in condition or worsening of symptoms should prompt an immediate return to this or the closest emergency department or call 911.
[2019-05-06] MEDS ORDERED: Sodium Chloride 0.9% 1000 ML 1,000 ML ONE (22:55)
[2019-05-06 23:00] LABS: Absolute Neutrophil Ct (ANC) 7.58 (1.4-6.9); BASOPHIL % 0.2 % (0.0-0.4); Basophil (Absolute #) 0.02 (0-0.4); Eosinophil % 1.4 % (0.00-5.0); Eosinophil (Absolute #) 0.14 (0-0.5); Hematocrit 38.8 % (35-47); Hemoglobin 12.9 gm/dl (12.0-16.0); Lymphocyte (Absolute #) 1.16 (1.0-4.6); Lymphocytes % 11.8 % (24.0-44.0); Mean Cell Volume 102.4 fl (78-100); Mean Corpuscular Hgb Concent. 33.2 g/dl (32-36); Mean Platelet Volume 10.1 fl (6-9.5); Monocyte (Absolute #) 0.95 (0.0-1.3); Monocytes % 9.6 % (0.0-12.0); Platelet Count 272 K/mm3 (150-450); Red Blood Count 3.79 M/mm3 (4.1-5.4); Red Cell Distribution Width 12.4 % (11.5-14.0); White Blood Count 9.9 K/mm3 (4.0-10.5)
[2019-05-06 23:09] LABS: PTT 31.7 SECONDS (25.3-37.0)
[2019-05-06 23:20] LABS: ALBUMIN 3.8 g/dL (3.5-5.0); ALKALINE PHOSPHATASE 53 U/L (38-126); ANION GAP 11.5 MEQ/L (5-15); BLOOD UREA NITROGEN 11 mg/dL (7-17); CHLORIDE 102 mmol/L (98-107); CK-Creatinine Phosphokinase 51 U/L (30-135); Calcium 9.4 mg/dL (8.4-10.2); Carbon Dioxide 26 mmol/L (22-30); Creatinine 1 0.51 mg/dL (0.52-1.04); Glucose 103 mg/dL (74-106); NT PRO BNP 99.1 pg/mL (0-900); Potassium 3.7 mmol/L (3.5-5.1); SGOT/AST 19 U/L (14-36); SGPT/ALT 13 U/L (0-35); SODIUM 137 mmol/L (137-145); Total Protein 7.4 g/dL (6.3-8.2)
[2019-05-06 23:44] LABS: INR 1.1 (0.8-3.0); PROTIME 12.4 SECONDS (9.95-12.35)
[2019-05-07] MEDS ORDERED: Tums EX 750 MG PO ONE (00:22)
[2019-05-07 01:12] VITALS: O2SAT 98
[2019-05-07 02:50] VITALS: BP 104/51; PULSE 63
--- NOTE | 2019-05-07 09:27 | XRAY ---
Indication: Chest pain and short of breath. COPD. Comparison: January 19, 2017. Portable chest demonstrates new subtle patchy left upper and lesser degree left base interstitial alveolar opacities. Stable COPD and right lung postsurgical changes. Heart is not enlarged. Bony thorax intact again with mild osteopenia and degenerative changes. Comment: Left lung findings not reported on preliminary interpretation by the interpreting ER clinician. Telephone report given to Dr. Bowling in the ER at 0922 hrs. on May 07, 2019.
== END 2019-05-07 03:18 | disposition home or self-care (01) ==
LOC: ED 22:18
DX: R07.89 Other chest pain (principal); Z79.899 Other long term (current) drug therapy; J44.9 Chronic obstructive pulmonary disease, unspecified; E03.9 Hypothyroidism, unspecified; Z87.01 Personal history of pneumonia (recurrent)
CPT/HCPCS: 36000; 36415; 71045; 80053; 82550; 83735; 83880; 84484; 85025; 85610; 85730; 93005; 93041; 96360; 99284; A9270-GY

== ENCOUNTER 2021-10-13 10:32 | Observation (INO) | payer MEDICARE ==
[2021-10-13] MEDS ORDERED: Sodium Chloride 0.9% 1000 ML 1,000 ML IV SCH (11:15)
--- NOTE | 2021-10-13 11:16 | ERPHSYRPT ---
- History of Present Illness Time Seen by Provider: 10/13/21 11:11 Source: patient Exam Limitations: no limitations Patient Subjective Stated Complaint: Pt sent to the hospital by Dr. Gilmore due to low oxygen sats, fever, cough that has been going on for the past Triage Nursing Assessment: Pt brought to the hospital by her son, hypertensive, hypoxic, rates generalized pain as 5/10, came into the ER by wheelchair due to being too weak, cough with white sputum, pt reports a 23 pound weight loss in the past couple of weeks while being sick, body aches, reports a fever with chills at night, pulses normal, skin n/w/d, placed on 2L NC and oxygen raised to 92% Physician History: Patient is a 70-year-old white female who has some COPD who has been sick for 2 weeks. She started with nightly fevers and chills some diarrhea and severe body aches. She had a virtual visit with her primary care who started her on a Z-Sacha which gave some transient improvement. Presently she is extremely weak she has a park sick at home she continues to run fevers she still has chills but no longer has body aches she has a weight loss in 2 weeks of 23 pounds. Timing/Duration: week(s) (2) Cough Quality/Degree: severe, productive cough, sputum (Yellow-green) Possible Cause: occasional episodes Modifying Factors: Improves With: coughing, oxygen Associated Symptoms: fever, chills, cough, shortness of breath, wheezing Allergies/Adverse Reactions: tapentadol HCl [From Nucynta] Adverse Reaction (Severe, Verified 10/13/21 10:59) disoriented states "took for severe arthritis,fever,confusion,couldn't sleep" Home Medications: Venlafaxine HCl ER 75 mg [Effexor XR 75 MG] 150 mg PO DAILY 06/08/13 [History] Oxybutynin Chloride 10 mg Xl [Ditropan Xl 10 MG] 10 mg PO DAILY 11/27/17 [History] Primidone 50 MG [Mysoline 50Mg] 50 mg PO QID 11/27/17 [History] ALPRAZolam 1 MG [Xanax 1 mg] 0.5 mg PO TID 12/02/19 [History] Fluticasone/Salmeterol [Advair 250-50 Diskus] 1 each IH BID 05/06/19 [History] Levothyroxine Sodium 150 mcg PO DAILY 10/13/21 [History] Omeprazole 40 mg PO BID 10/13/21 [History] Pantoprazole Sodium 40 mg PO DAILY 10/13/21 [History] Hx Tetanus, Diphtheria Vaccination/Date Given: Yes (up to date) Hx Influenza Vaccination/Date Given: Yes Hx Pneumococcal Vaccination/Date Given: No Travel Risk - International Travel Have you traveled outside of the country in past 3 weeks: No - Coronavirus Screening Are you exhibiting any of the following symptoms?: Yes Symptoms: Fever, Cough: New Onset, Shortness of Breath, Headaches/Body Aches/Fatigue Close contact with a COVID-19 positive Pt in past 14-21 Days: No - Vaccine Status Have you recieved a Covid-19 vaccination: Yes 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: [employer] - Vaccination Dates Date of 2cond Vaccination (if applicable): 2020 - Review of Systems Constitutional: Fever, Chills, Night Sweats, Weight Loss Eyes: No Symptoms Ears, Nose, & Throat: No Symptoms Respiratory: Cough, Dyspnea, Dyspnea on Exertion (PAVON), Stridor Cardiac: No Chest Pain, No Edema, No Syncope Abdominal/Gastrointestinal: Diarrhea, No Abdominal Pain, No Nausea, No Vomiting Genitourinary Symptoms: No Dysuria Musculoskeletal: No Back Pain, No Neck Pain Skin: No Rash Neurological: No Dizziness, No Focal Weakness, No Sensory Changes Psychological: No Symptoms Endocrine: No Symptoms All Other Systems: Reviewed and Negative - Past Medical History Pertinent Past Medical History: Yes Neurological History: No Pertinent History ENT History: No Pertinent History Cardiac History: No Pertinent History Respiratory History: COPD, Pneumonia, Other Endocrine Medical History: Hypothyroidism Musculoskeletal History: Arthritis GI Medical History: Hepatitis, Hernia, Ulcer History: No Pertinent History Psycho-Social History: Bipolar, Depression Female Reproductive Disorders: No Pertinent History Other Medical History: hep B, MRSA. Carpal tunnel. manic depressive - Past Surgical History Past Surgical History: Yes Neuro Surgical History: No Pertinent History Cardiac: Other Respiratory: Chest Surgery, Lobectomy Gastrointestinal: Cholecystectomy, Other Genitourinary: No Pertinent History Musculoskeletal: No Pertinent History, Orthopedic Surgery Female Surgical History: Hysterectomy Other Surgical History: lobectomy right lower , cut MRSA out of surgical wound of right side/lung, repositioned esophagus, wrapped the top of stomach, bilat little toe surgery, states "stomach acid into lung and caused infection before my surgery" - Social History Smoking Status: Current every day smoker How long have you smoked: 40 plus yr Exposure to second hand smoke: Yes Alcohol Use: Socially Drug Use: marijuana Patient Lives Alone: No Significant Family History: no pertinent family hx - Nursing Vital Signs Nursing Vital Signs: Initial Vital Signs Temperature 98.7 F 10/13/21 10:42 Pulse Rate 109 H 10/13/21 10:42 Respiratory Rate 26 H 10/13/21 10:42 Blood Pressure 136/104 10/13/21 10:42 O2 Sat by Pulse Oximetry 89 L 10/13/21 10:42 Pain Scale Pain Intensity 7 - Physical Exam General Appearance: mild distress, cachetic, thin Eye Exam: PERRL/EOMI, eyes nml inspection Ears, Nose, Throat Exam: normal ENT inspection, TMs normal, pharynx normal, moist mucous membranes Neck Exam: normal inspection, non-tender, supple, full range of motion Respiratory Exam: diminished breath sounds, crackles/rales Cardiovascular Exam: regular rate/rhythm, normal heart sounds Gastrointestinal/Abdomen Exam: soft, normal bowel sounds, No tenderness Back Exam: normal inspection, No CVA tenderness, No vertebral tenderness Extremity Exam: normal inspection, normal range of motion Neurologic Exam: alert, oriented x 3, cooperative, normal mood/affect, sensation nml, No motor deficits Skin Exam: normal color, warm, dry SpO2 Interpretation: normal, hypoxic, O2 applied (2 L) SpO2: 92 O2 Delivery: Room Air - Course Nursing assessment & vital signs reviewed: Yes EKG Interpreted by Me: RATE (97), Sinus Rhythm, NORMAL AXIS, NORMAL INTERVALS, Non-specific ST Changes, Other (Left ventricular hypertrophy) - Radiology Exams Chest X-ray Interpretation: Infiltrates (New infiltrates in the left lower lobe consistent with pneumonia) Ordered Tests: Active Orders 24 hr Category Date Time Status Lead Military Analyst STAT Care 10/13/21 11:11 Active EKG-ER Only STAT Care 10/13/21 11:06 Active IV Insertion STAT Care 10/13/21 11:11 Active Oxygen-ED Only Nasal Cannula 2 lpm Care 10/13/21 11:06 Active CHEST 1 VIEW (PORTABLE) Stat Exams 10/13/21 11:08 Completed BLOOD CULTURE Stat Lab 10/13/21 11:30 Received CBC W DIFF Stat Lab 10/13/21 11:00 Completed CMP Stat Lab 10/13/21 11:00 Completed CULTURE,SPUTUM Stat Lab 10/13/21 11:07 Ordered Lactic Acid Stat Lab 10/13/21 11:06 Completed PROCALCITONIN Stat Lab 10/13/21 11:00 Completed TROPONIN Q3H Lab 10/13/21 11:00 Completed TROPONIN Q3H Lab 10/13/21 14:15 Ordered TROPONIN Q3H Lab 10/13/21 17:15 Ordered TROPONIN Q3H Lab 10/13/21 20:15 Ordered TROPONIN Q3H Lab 10/13/21 23:15 Ordered UA W/RFX CULTURE Stat Lab 10/13/21 Ordered Medication Summary Generic Name Dose Route Start Last Admin Trade Name Freq PRN Reason Stop Dose Admin Sodium Chloride 1,000 mls @ 100 mls/hr 10/13/21 11:15 10/13/21 11:31 Sodium Chloride 0.9% 1000 Ml IV 11/12/21 11:14 100 mls/hr .Q10H ASHA Administration Ceftriaxone Sodium/Dextrose 1 g in 50 mls @ 100 mls/hr 10/13/21 12:26 10/13/21 12:35 Rocephin 1 Gm-D5w 50 Ml Bag IV 10/13/21 12:55 100 ml/hr STAT STA 100 mls/hr Administration Azithromycin 500 mg in 250 mls @ 250 mls/hr 10/13/21 12:27 10/13/21 12:40 Zithromax 500 Mg/ 250 Ml Nacl Premix IV 10/13/21 13:26 250 mls/hr STAT ONE Administration Discontinued Medications Generic Name Dose Route Start Last Admin Trade Name Freq PRN Reason Stop Dose Admin Acetaminophen 650 mg 10/13/21 12:38 10/13/21 12:39 Acetaminophen 325 Mg Tablet PO 10/13/21 12:39 650 mg STAT STA Administration Azithromycin Confirm 10/13/21 12:33 Zithromax 500 Mg/ 250 Ml Nacl Premix Administered 10/13/21 12:34 Dose 500 mg in 250 mls @ ud IV .STK-MED ONE Ceftriaxone Sodium/Dextrose Confirm 10/13/21 12:33 Rocephin 1 Gm-D5w 50 Ml Bag Administered 05/11/22 12:34 Dose 1 g in 50 mls @ ud IV .STK-MED ONE Lab/Rad Data: Laboratory Result Diagrams 10/13/21 11:00 10/13/21 11:00 Laboratory Results 10/13/21 10/13/21 10/13/21 Range/Units 11:30 11:06 11:00 WBC (4.0-10.5) K/mm3 RBC (4.1-5.4) M/mm3 Hgb (12.0-16.0) gm/dl Hct (35-47) % MCV (78-100) fl MCH (26-32) pg MCHC (32-36) g/dl RDW (11.5-14.0) % Plt Count (150-450) K/mm3 MPV (7.5-11.0) fl Gran % (36.0-66.0) % Eos # (Auto) (0-0.5) Absolute Lymphs (auto) (1.0-4.6) Absolute Monos (auto) (0.0-1.3) Lymphocytes % (24.0-44.0) % Monocytes % (0.0-12.0) % Eosinophils % (0.00-5.0) % Basophils % (0.0-0.4) % Absolute Granulocytes (1.4-6.9) Basophils # (0-0.4) Sodium (137-145) mmol/L Potassium (3.5-5.1) mmol/L Chloride (98-107) mmol/L Carbon Dioxide (22-30) mmol/L Anion Gap (5-15) MEQ/L BUN (7-17) mg/dL Creatinine (0.52-1.04) mg/dL Estimated GFR ML/MIN Glucose (74-106) mg/dL Lactic Acid 1.3 (0.4-2.0) Calcium (8.4-10.2) mg/dL Total Bilirubin (0.2-1.3) mg/dL AST (14-36) U/L ALT (0-35) U/L Alkaline Phosphatase (38-126) U/L Troponin I < 0.012 (0.000-0.034) ng/mL Serum Total Protein (6.3-8.2) g/dL Albumin (3.5-5.0) g/dL Procalcitonin (0.030-0.080) ng/mL Influenza Type A Ag NEGATIVE (NEGATIVE) Influenza Type B Ag NEGATIVE (NEGATIVE) RSV (PCR) NEGATIVE (Negative) SARS-CoV-2 (PCR) NEGATIVE (NEGATIVE) 10/13/21 10/13/21 Range/Units 11:00 11:00 WBC 16.0 H (4.0-10.5) K/mm3 RBC 4.06 L (4.1-5.4) M/mm3 Hgb 13.5 (12.0-16.0) gm/dl Hct 40.8 (35-47) % MCV 100.5 H (78-100) fl MCH 33.3 H (26-32) pg MCHC 33.1 (32-36) g/dl RDW 13.2 (11.5-14.0) % Plt Count 544 H (150-450) K/mm3 MPV 9.7 (7.5-11.0) fl Gran % 84.6 H (36.0-66.0) % Eos # (Auto) 0.09 (0-0.5) Absolute Lymphs (auto) 1.48 (1.0-4.6) Absolute Monos (auto) 0.86 (0.0-1.3) Lymphocytes % 9.3 L (24.0-44.0) % Monocytes % 5.4 (0.0-12.0) % Eosinophils % 0.6 (0.00-5.0) % Basophils % 0.1 (0.0-0.4) % Absolute Granulocytes 13.54 H (1.4-6.9) Basophils # 0.02 (0-0.4) Sodium 134 L (137-145) mmol/L Potassium 4.5 (3.5-5.1) mmol/L Chloride 98 (98-107) mmol/L Carbon Dioxide 24 (22-30) mmol/L Anion Gap 15.8 H (5-15) MEQ/L BUN 11 (7-17) mg/dL Creatinine 0.45 L (0.52-1.04) mg/dL Estimated GFR > 60.0 ML/MIN Glucose 115 H (74-106) mg/dL Lactic Acid (0.4-2.0) Calcium 9.1 (8.4-10.2) mg/dL Total Bilirubin 0.60 (0.2-1.3) mg/dL AST 25 (14-36) U/L ALT 16 (0-35) U/L Alkaline Phosphatase 77 (38-126) U/L Troponin I (0.000-0.034) ng/mL Serum Total Protein 7.2 (6.3-8.2) g/dL Albumin 3.7 (3.5-5.0) g/dL Procalcitonin 0.079 (0.030-0.080) ng/mL Influenza Type A Ag (NEGATIVE) Influenza Type B Ag (NEGATIVE) RSV (PCR) (Negative) SARS-CoV-2 (PCR) (NEGATIVE) - Progress Progress: improved Blood Culture(s) Obtained: Yes Antibiotics given: Yes Discussed with DrPatrick: Jeremy Will see patient in: hospital (full admit) - Departure Departure Disposition: In-patient Admission Clinical Impression: Pneumonia Condition: Stable Critical Care Time: No Referrals: HARVINDER GILMORE [Primary Care Provider] - Follow up/PCP as directed Instructions: Pneumonia, Adult (DC)
[2021-10-13] MEDS ORDERED: Sodium Chloride 0.9% 1000 ML 1,000 ML ONE (11:29)
[2021-10-13 11:31] LABS: Absolute Neutrophil Ct (ANC) 13.54 (1.4-6.9); Basophil (Absolute #) 0.02 (0-0.4); Eosinophil % 0.6 % (0.00-5.0); Eosinophil (Absolute #) 0.09 (0-0.5); Hematocrit 40.8 % (35-47); Hemoglobin 13.5 gm/dl (12.0-16.0); Lymphocyte (Absolute #) 1.48 (1.0-4.6); Lymphocytes % 9.3 % (24.0-44.0); Mean Cell Volume 100.5 fl (78-100); Mean Corpuscular Hemoglobin 33.3 pg (26-32); Mean Corpuscular Hgb Concent. 33.1 g/dl (32-36); Mean Platelet Volume 9.7 fl (7.5-11.0); Monocyte (Absolute #) 0.86 (0.0-1.3); Monocytes % 5.4 % (0.0-12.0); Neutrophil % 84.6 % (36.0-66.0); Platelet Count 544 K/mm3 (150-450); Red Blood Count 4.06 M/mm3 (4.1-5.4); Red Cell Distribution Width 13.2 % (11.5-14.0)
[2021-10-13 11:56] LABS: ALBUMIN 3.7 g/dL (3.5-5.0); ALKALINE PHOSPHATASE 77 U/L (38-126); ANION GAP 15.8 MEQ/L (5-15); BLOOD UREA NITROGEN 11 mg/dL (7-17); CHLORIDE 98 mmol/L (98-107); Calcium 9.1 mg/dL (8.4-10.2); Carbon Dioxide 24 mmol/L (22-30); Creatinine 1 0.45 mg/dL (0.52-1.04); EST GLOMERULAR FILTRATION RATE > 60.0 ML/MIN; Glucose 115 mg/dL (74-106); PROCALCITONIN 0.079 ng/mL (0.030-0.080); Potassium 4.5 mmol/L (3.5-5.1); SGOT/AST 25 U/L (14-36); SGPT/ALT 16 U/L (0-35); SODIUM 134 mmol/L (137-145); Total Protein 7.2 g/dL (6.3-8.2)
--- NOTE | 2021-10-13 12:03 | XRAY ---
Indication: Fever, cough, short of breath. Comparison: June 21, 2019. Portable chest demonstrates new left mid to lower lung airspace disease without consolidation/large effusion. Remaining chest unchanged again demonstrating COPD and right lung postsurgical changes. Heart not enlarged. Bony thorax intact again with osteopenia and degenerative changes.
[2021-10-13 12:09] LABS: INFLUENZA A NEGATIVE (NEGATIVE); INFLUENZA B NEGATIVE (NEGATIVE); RESPIRATORY SYNCTIAL VIRUS NEGATIVE (Negative); SARS-CoV-2 Xpert Express NEGATIVE (NEGATIVE)
[2021-10-13] MEDS ORDERED: ROCEPHIN 1 Gm-D5w 50 ml Bag** 1 G/50 ML IVPB IV STA (12:26)
[2021-10-13] MEDS ORDERED: Zithromax 500 MG/ 250 ML NaCl Premix 500 MG/250 ML IVPB IV ONE ×2 (12:27→12:33)
[2021-10-13] MEDS ORDERED: ROCEPHIN 1 Gm-D5w 50 ml Bag** 1 G/50 ML IVPB IV ONE (12:33)
[2021-10-13] MEDS ORDERED: TYLENOL 325 MG PO STA (12:38)
[2021-10-13] MEDS ORDERED: TYLENOL 325 MG ONE (12:39)
[2021-10-13] MEDS ORDERED: XANAX 1 MG PO PRN (18:00)
[2021-10-13] MEDS: SYNTHROID 150 MCG PO SCH (18:01)
[2021-10-13] MEDS: Effexor XR 75 MG PO SCH (18:01)
[2021-10-13] MEDS: Ditropan XL 5 MG PO SCH (18:01)
[2021-10-13] MEDS ORDERED: Advair Hfa 115/21 Common canister IH SCH (19:00)
[2021-10-13 19:41] LABS: Epithelial Cells RARE /HPF (FEW); WBC 0-2 /HPF (0-5)
[2021-10-13 19:44] LABS: Appearance CLEAR (CLEAR); Bilirubin NEGATIVE (NEGATIVE); Dipstick done @ ? MAIN LAB; Glucose NEGATIVE (NEGATIVE); Ketones NEGATIVE (NEGATIVE); Nitrite NEGATIVE (NEGATIVE); Protein,Urine Dip NEGATIVE (Negative); RBC NEGATIVE Ery/ul (0-5); Specific Gravity 1.015 (1.005-1.025); Urine Cultured Indicated? NO; Urobilinogen 0.2 mg/dL (0-1)
[2021-10-13] MEDS: TYLENOL 325 MG PO PRN (19:59)
[2021-10-13] MEDS: Protonix 40MG Tablet PO SCH (21:13)
[2021-10-13] MEDS: MYSOLINE 50MG PO SCH (21:13)
[2021-10-13] MEDS ORDERED: FLUTICASONE-SALMETEROL 250-50 IH SCH (22:00)
[2021-10-14 05:30] LABS: Hematocrit 35.8 % (35-47); Hemoglobin 11.8 gm/dl (12.0-16.0); Mean Cell Volume 102.3 fl (78-100); Mean Corpuscular Hemoglobin 33.7 pg (26-32); Mean Platelet Volume 9.3 fl (7.5-11.0); Platelet Count 528 K/mm3 (150-450); Red Cell Distribution Width 13.3 % (11.5-14.0); White Blood Count 14.3 K/mm3 (4.0-10.5)
[2021-10-14 06:08] LABS: ALBUMIN 3.1 g/dL (3.5-5.0); ALKALINE PHOSPHATASE 62 U/L (38-126); ANION GAP 9.4 MEQ/L (5-15); BLOOD UREA NITROGEN 9 mg/dL (7-17); CHLORIDE 103 mmol/L (98-107); Calcium 8.3 mg/dL (8.4-10.2); Carbon Dioxide 26 mmol/L (22-30); EST GLOMERULAR FILTRATION RATE > 60.0 ML/MIN; Glucose 85 mg/dL (74-106); SGOT/AST 21 U/L (14-36); SGPT/ALT 12 U/L (0-35); SODIUM 134 mmol/L (137-145); Total Protein 6.4 g/dL (6.3-8.2)
[2021-10-14] MEDS: Effexor XR 75 MG PO SCH (08:47)
[2021-10-14] MEDS: SYNTHROID 150 MCG PO SCH (08:48)
[2021-10-14] MEDS: Ditropan XL 5 MG PO SCH (08:48)
[2021-10-14] MEDS: TYLENOL 325 MG PO PRN (08:48)
[2021-10-14] MEDS: Protonix 40MG Tablet PO SCH (08:49)
[2021-10-14] MEDS: MYSOLINE 50MG PO SCH ×4 (08:49→21:27)
--- NOTE | 2021-10-14 08:49 | PCM.HP ---
History of Present Illness - Chief Complaint Chief Complaint: PNEUMONIA History of Present Illness: is a 70 year old female with a history of copd, she has been progressively more ill over the last 2 weeks with cough, fever and body aches. she reports poor po intake and weight loss with weakness. cough is productive of yellow sputum. - Review of Systems Constitutional: Fever, Chills Respiratory: Cough, Short Of Breath Cardiac: No Chest Pain, No Edema, No Syncope Abdominal/Gastrointestinal: No Abdominal Pain, No Nausea, No Vomiting, No Diarrhea Skin: No Rash All Other Systems: Reviewed and Negative Medications & Allergies Home Medications: Home Medication List Venlafaxine HCl ER 75 mg [Effexor XR 75 MG] 150 mg PO DAILY 06/08/13 [History Confirmed 10/13/21] Oxybutynin Chloride 10 mg Xl [Ditropan Xl 10 MG] 10 mg PO DAILY 11/27/17 [History Confirmed 10/13/21] Primidone 50 MG [Mysoline 50Mg] 50 mg PO QID 11/27/17 [History Confirmed 10/13/21] ALPRAZolam 1 MG [Xanax 1 mg] 0.5 mg PO TIDPRN 05/06/19 [History Confirmed 10/13/21] Fluticasone/Salmeterol [Advair 250-50 Diskus] 1 each IH BID 05/06/19 [History Confirmed 10/13/21] Levothyroxine Sodium 150 mcg PO DAILY 10/13/21 [History Confirmed 10/13/21] Pantoprazole Sodium 40 mg PO BID 10/13/21 [History Confirmed 10/13/21] Allergies/Adverse Reactions: Allergies Allergy/AdvReac Type Severity Reaction Status Date / Time tapentadol HCl [From Nucynta] AdvReac Severe disoriented Verified 10/13/21 10:59 - Past Medical History Past Medical History: Yes Neurological History: No Pertinent History ENT History: No Pertinent History Cardiac History: No Pertinent History Respiratory History: COPD, Pneumonia, Other Endocrine Medical History: Hypothyroidism Musculoskelatal History: Arthritis, Osteoporosis GI Medical History: Hepatitis, Hernia, Ulcer History: No Pertinent History Pyscho-Social History: Bipolar, Depression Reproductive Disorders: No Pertinent History Comment: hep B, MRSA. Carpal tunnel. manic depressive. TREMORS - Past Surgical History Past Surgical History: Yes Neuro Surgical History: No Pertinent History Cardiac History: Other Respiratory Surgery: Chest Surgery, Lobectomy GI Surgical History: Cholecystectomy, Hernia Repair, Other Genitourinary Surgical Hx: No Pertinent History Musculskeletal Surgical Hx: Orthopedic Surgery Female Surgical History: Hysterectomy Other Surgical History: lobectomy right lower , cut MRSA out of surgical wound of right side/lung, repositioned esophagus, wrapped the top of stomach, bilat little toe surgery, states "stomach acid into lung and caused infection before my surgery", CARPEL TUNNEL REPAIR BILATERAL HAND AND RIGHT ELBOW. - Social History Smoking Status: Current every day smoker How long have you smoked: 40 plus yr Exposure to second hand smoke: No Alcohol: None Drug Use: marijuana Significant Family History: no pertinent family hx - Physical Exam Vital Signs: Vital Signs - 24 hr Temp Pulse Resp BP Pulse Ox 10/14/21 07:38 97.8 F 58 L 19 113/59 97 10/14/21 04:00 98.0 F 63 12 135/64 93 L 10/13/21 23:37 97.5 F 67 16 124/57 93 L 10/13/21 20:00 98.0 F 74 12 141/69 91 L 10/13/21 17:31 95 10/13/21 15:17 97.3 F 74 20 109/54 95 10/13/21 13:22 98.4 F 80 22 102/52 97 10/13/21 12:47 95 10/13/21 12:42 92 L 10/13/21 12:00 80 20 112/69 94 L 10/13/21 11:10 108 H 20 98/75 93 L 10/13/21 10:42 98.7 F 109 H 26 H 136/104 92 L General Appearance: no apparent distress Neurologic Exam: alert, oriented x 3 Respiratory Exam: diminished breath sounds, prolonged expirations, rhonchi Cardiovascular Exam: regular rate/rhythm, normal heart sounds, normal peripheral pulses Gastrointestinal/Abdomen Exam: soft, normal bowel sounds, No tenderness, No mass Extremity Exam: normal inspection, normal range of motion, pelvis stable Skin Exam: normal color, warm, dry, No rash Results - Labs Lab/Micro Results: Lab Results-Last 24 Hours 10/13/21 10/13/21 10/13/21 Range/Units 11:00 11:00 11:00 WBC 16.0 H (4.0-10.5) K/mm3 RBC 4.06 L (4.1-5.4) M/mm3 Hgb 13.5 (12.0-16.0) gm/dl Hct 40.8 (35-47) % MCV 100.5 H (78-100) fl MCH 33.3 H (26-32) pg MCHC 33.1 (32-36) g/dl RDW 13.2 (11.5-14.0) % Plt Count 544 H (150-450) K/mm3 MPV 9.7 (7.5-11.0) fl Gran % 84.6 H (36.0-66.0) % Eos # (Auto) 0.09 (0-0.5) Absolute Lymphs (auto) 1.48 (1.0-4.6) Absolute Monos (auto) 0.86 (0.0-1.3) Lymphocytes % 9.3 L (24.0-44.0) % Monocytes % 5.4 (0.0-12.0) % Eosinophils % 0.6 (0.00-5.0) % Basophils % 0.1 (0.0-0.4) % Absolute Granulocytes 13.54 H (1.4-6.9) Basophils # 0.02 (0-0.4) Sodium 134 L (137-145) mmol/L Potassium 4.5 (3.5-5.1) mmol/L Chloride 98 (98-107) mmol/L Carbon Dioxide 24 (22-30) mmol/L Anion Gap 15.8 H (5-15) MEQ/L BUN 11 (7-17) mg/dL Creatinine 0.45 L (0.52-1.04) mg/dL Estimated GFR > 60.0 ML/MIN Glucose 115 H (74-106) mg/dL Lactic Acid (0.4-2.0) Calcium 9.1 (8.4-10.2) mg/dL Magnesium (1.6-2.3) mg/dL Total Bilirubin 0.60 (0.2-1.3) mg/dL AST 25 (14-36) U/L ALT 16 (0-35) U/L Alkaline Phosphatase 77 (38-126) U/L Troponin I < 0.012 (0.000-0.034) ng/mL Serum Total Protein 7.2 (6.3-8.2) g/dL Albumin 3.7 (3.5-5.0) g/dL Procalcitonin 0.079 (0.030-0.080) ng/mL Urinalys Dipstick Clnc Urine Color (YELLOW) Urine Appearance (CLEAR) Urine pH (5-6) Ur Specific Goodell (1.005-1.025) POC Urine Protein Conf (Negative) Urine Ketones (NEGATIVE) Urine Nitrite (NEGATIVE) Urine Bilirubin (NEGATIVE) Urine Urobilinogen (0-1) mg/dL Urine Leukocytes (NEGATIVE) Urine WBC (Auto) (0-5) /HPF Urine RBC (Auto) (0-2) /HPF U Epithel Cells (Auto) (FEW) /HPF Urine Bacteria (Auto) (NEGATIVE) /HPF Urine RBC (0-5) Nba/ul Ur Culture Indicated? Urine Glucose (NEGATIVE) mg/dL Influenza Type A Ag (NEGATIVE) Influenza Type B Ag (NEGATIVE) RSV (PCR) (Negative) SARS-CoV-2 (PCR) (NEGATIVE) 10/13/21 10/13/21 10/13/21 Range/Units 11:06 11:30 13:47 WBC (4.0-10.5) K/mm3 RBC (4.1-5.4) M/mm3 Hgb (12.0-16.0) gm/dl Hct (35-47) % MCV (78-100) fl MCH (26-32) pg MCHC (32-36) g/dl RDW (11.5-14.0) % Plt Count (150-450) K/mm3 MPV (7.5-11.0) fl Gran % (36.0-66.0) % Eos # (Auto) (0-0.5) Absolute Lymphs (auto) (1.0-4.6) Absolute Monos (auto) (0.0-1.3) Lymphocytes % (24.0-44.0) % Monocytes % (0.0-12.0) % Eosinophils % (0.00-5.0) % Basophils % (0.0-0.4) % Absolute Granulocytes (1.4-6.9) Basophils # (0-0.4) Sodium (137-145) mmol/L Potassium (3.5-5.1) mmol/L Chloride (98-107) mmol/L Carbon Dioxide (22-30) mmol/L Anion Gap (5-15) MEQ/L BUN (7-17) mg/dL Creatinine (0.52-1.04) mg/dL Estimated GFR ML/MIN Glucose (74-106) mg/dL Lactic Acid 1.3 (0.4-2.0) Calcium (8.4-10.2) mg/dL Magnesium (1.6-2.3) mg/dL Total Bilirubin (0.2-1.3) mg/dL AST (14-36) U/L ALT (0-35) U/L Alkaline Phosphatase (38-126) U/L Troponin I < 0.012 (0.000-0.034) ng/mL Serum Total Protein (6.3-8.2) g/dL Albumin (3.5-5.0) g/dL Procalcitonin (0.030-0.080) ng/mL Urinalys Dipstick Clnc Urine Color (YELLOW) Urine Appearance (CLEAR) Urine pH (5-6) Ur Specific Goodell (1.005-1.025) POC Urine Protein Conf (Negative) Urine Ketones (NEGATIVE) Urine Nitrite (NEGATIVE) Urine Bilirubin (NEGATIVE) Urine Urobilinogen (0-1) mg/dL Urine Leukocytes (NEGATIVE) Urine WBC (Auto) (0-5) /HPF Urine RBC (Auto) (0-2) /HPF U Epithel Cells (Auto) (FEW) /HPF Urine Bacteria (Auto) (NEGATIVE) /HPF Urine RBC (0-5) Nba/ul Ur Culture Indicated? Urine Glucose (NEGATIVE) mg/dL Influenza Type A Ag NEGATIVE (NEGATIVE) Influenza Type B Ag NEGATIVE (NEGATIVE) RSV (PCR) NEGATIVE (Negative) SARS-CoV-2 (PCR) NEGATIVE (NEGATIVE) 10/13/21 10/13/21 10/13/21 Range/Units 17:22 19:30 21:00 WBC (4.0-10.5) K/mm3 RBC (4.1-5.4) M/mm3 Hgb (12.0-16.0) gm/dl Hct (35-47) % MCV (78-100) fl MCH (26-32) pg MCHC (32-36) g/dl RDW (11.5-14.0) % Plt Count (150-450) K/mm3 MPV (7.5-11.0) fl Gran % (36.0-66.0) % Eos # (Auto) (0-0.5) Absolute Lymphs (auto) (1.0-4.6) Absolute Monos (auto) (0.0-1.3) Lymphocytes % (24.0-44.0) % Monocytes % (0.0-12.0) % Eosinophils % (0.00-5.0) % Basophils % (0.0-0.4) % Absolute Granulocytes (1.4-6.9) Basophils # (0-0.4) Sodium (137-145) mmol/L Potassium (3.5-5.1) mmol/L Chloride (98-107) mmol/L Carbon Dioxide (22-30) mmol/L Anion Gap (5-15) MEQ/L BUN (7-17) mg/dL Creatinine (0.52-1.04) mg/dL Estimated GFR ML/MIN Glucose (74-106) mg/dL Lactic Acid (0.4-2.0) Calcium (8.4-10.2) mg/dL Magnesium (1.6-2.3) mg/dL Total Bilirubin (0.2-1.3) mg/dL AST (14-36) U/L ALT (0-35) U/L Alkaline Phosphatase (38-126) U/L Troponin I < 0.012 < 0.012 (0.000-0.034) ng/mL Serum Total Protein (6.3-8.2) g/dL Albumin (3.5-5.0) g/dL Procalcitonin (0.030-0.080) ng/mL Urinalys Dipstick Clnc MAIN LAB Urine Color YELLOW (YELLOW) Urine Appearance CLEAR (CLEAR) Urine pH 7.0 (5-6) Ur Specific Goodell 1.015 (1.005-1.025) POC Urine Protein Conf NEGATIVE (Negative) Urine Ketones NEGATIVE (NEGATIVE) Urine Nitrite NEGATIVE (NEGATIVE) Urine Bilirubin NEGATIVE (NEGATIVE) Urine Urobilinogen 0.2 (0-1) mg/dL Urine Leukocytes NEGATIVE (NEGATIVE) Urine WBC (Auto) 0-2 (0-5) /HPF Urine RBC (Auto) NONE (0-2) /HPF U Epithel Cells (Auto) RARE (FEW) /HPF Urine Bacteria (Auto) NONE (NEGATIVE) /HPF Urine RBC NEGATIVE (0-5) Nba/ul Ur Culture Indicated? NO Urine Glucose NEGATIVE (NEGATIVE) mg/dL Influenza Type A Ag (NEGATIVE) Influenza Type B Ag (NEGATIVE) RSV (PCR) (Negative) SARS-CoV-2 (PCR) (NEGATIVE) 10/13/21 10/14/21 10/14/21 Range/Units 23:30 05:15 05:15 WBC 14.3 H (4.0-10.5) K/mm3 RBC 3.50 L (4.1-5.4) M/mm3 Hgb 11.8 L (12.0-16.0) gm/dl Hct 35.8 (35-47) % MCV 102.3 H (78-100) fl MCH 33.7 H (26-32) pg MCHC 33.0 (32-36) g/dl RDW 13.3 (11.5-14.0) % Plt Count 528 H (150-450) K/mm3 MPV 9.3 (7.5-11.0) fl Gran % (36.0-66.0) % Eos # (Auto) (0-0.5) Absolute Lymphs (auto) (1.0-4.6) Absolute Monos (auto) (0.0-1.3) Lymphocytes % (24.0-44.0) % Monocytes % (0.0-12.0) % Eosinophils % (0.00-5.0) % Basophils % (0.0-0.4) % Absolute Granulocytes (1.4-6.9) Basophils # (0-0.4) Sodium 134 L (137-145) mmol/L Potassium 4.0 (3.5-5.1) mmol/L Chloride 103 (98-107) mmol/L Carbon Dioxide 26 (22-30) mmol/L Anion Gap 9.4 (5-15) MEQ/L BUN 9 (7-17) mg/dL Creatinine 0.40 L (0.52-1.04) mg/dL Estimated GFR > 60.0 ML/MIN Glucose 85 (74-106) mg/dL Lactic Acid (0.4-2.0) Calcium 8.3 L (8.4-10.2) mg/dL Magnesium 2.0 (1.6-2.3) mg/dL Total Bilirubin 0.50 (0.2-1.3) mg/dL AST 21 (14-36) U/L ALT 12 (0-35) U/L Alkaline Phosphatase 62 (38-126) U/L Troponin I < 0.012 (0.000-0.034) ng/mL Serum Total Protein 6.4 (6.3-8.2) g/dL Albumin 3.1 L (3.5-5.0) g/dL Procalcitonin (0.030-0.080) ng/mL Urinalys Dipstick Clnc Urine Color (YELLOW) Urine Appearance (CLEAR) Urine pH (5-6) Ur Specific Goodell (1.005-1.025) POC Urine Protein Conf (Negative) Urine Ketones (NEGATIVE) Urine Nitrite (NEGATIVE) Urine Bilirubin (NEGATIVE) Urine Urobilinogen (0-1) mg/dL Urine Leukocytes (NEGATIVE) Urine WBC (Auto) (0-5) /HPF Urine RBC (Auto) (0-2) /HPF U Epithel Cells (Auto) (FEW) /HPF Urine Bacteria (Auto) (NEGATIVE) /HPF Urine RBC (0-5) Nba/ul Ur Culture Indicated? Urine Glucose (NEGATIVE) mg/dL Influenza Type A Ag (NEGATIVE) Influenza Type B Ag (NEGATIVE) RSV (PCR) (Negative) SARS-CoV-2 (PCR) (NEGATIVE) - Radiology Impressions Radiology Exams & Impressions: Radiology Procedures Category Date Time Status CHEST 1 VIEW (PORTABLE) Routine Exams 10/14/21 07:00 Taken CHEST 1 VIEW (PORTABLE) Stat Exams 10/13/21 11:08 Completed CHEST WITH CONTRAST [CT] Stat Exams 10/14/21 08:43 Ordered - Other Procedures and Tests Respiratory Therapy 10/13/21 12:43 Oxygen Nasal Cannula 2 lpm Assessment/Plan (1) Pneumonia Current Visit: Yes Status: Acute Assessment & Plan: continue rocephin and zithromax, plan for chest ct due to history of copd/tobacco use and weight loss want to r/o malignancy Code(s): J18.9 - PNEUMONIA, UNSPECIFIED ORGANISM (2) Acute exacerbation of COPD with asthma Current Visit: No Status: Acute Assessment & Plan: nebs, will add IV steroids Code(s): J44.1 - CHRONIC OBSTRUCTIVE PULMONARY DISEASE W (ACUTE) EXACERBATION; J45.901 - UNSPECIFIED ASTHMA WITH (ACUTE) EXACERBATION
[2021-10-14] MEDS: ROCEPHIN 1 Gm-D5w 50 ml Bag** 1 G/50 ML IVPB IV SCH (08:51)
--- NOTE | 2021-10-14 09:08 | XRAY ---
Indication: Pneumonia. Comparison: One day earlier. Portable chest demonstrates worsening moderate left mid to lower lung airspace disease now appearing more consolidated with new small effusion. Remaining chest unchanged again demonstrating COPD and right lung postsurgical changes. Heart not enlarged.
[2021-10-14] MEDS: Zithromax 500 MG/ 250 ML NaCl Premix 500 MG/250 ML IVPB IV SCH (09:38)
[2021-10-14] MEDS: solu-CORTEF 100MG IV SCH ×2 (09:38→17:00)
[2021-10-14] MEDS ORDERED: NON-FORMULARY ITEM (Oxybutynin Chloride 10 Mg Xl [Ditropan Xl 10 Mg] 10 MG Tab) PO SCH (10:00)
[2021-10-14] MEDS ORDERED: NON-FORMULARY ITEM (Venlafaxine Hcl 75 MG Cap) PO SCH (10:00)
--- NOTE | 2021-10-14 12:58 | XRAY ---
Indication: Fever, cough, and weight loss. Multiple contiguous axial images obtained through the chest using 80 cc Isovue 370 contrast. Comparison: January 06, 2017 Lungs again demonstrates extensive diffuse pulmonary emphysema, scattered pleural-parenchymal fibrosis/scarring, and partial right lung resection with right lung volume loss. Left lower lobe again demonstrates moderate diffuse consolidating and nonconsolidating airspace disease more than before with new tiny effusion. Inferior left upper lobe demonstrates new minimal subpleural patchy airspace disease. Heart and mediastinal structures again shifted to the right. Heart is not enlarged. Aorta remains minimally arteriosclerotic without aneurysm/dissection. No pathologic mediastinal/hilar lymphadenopathy. Air distended proximal esophagus with fluid leveling presumed from GERD. Stable small hiatal hernia. Bony thorax intact again with osteopenia and minimal degenerative changes throughout the spine. Limited upper abdomen demonstrates new loop of air distended colon interposed between liver and lateral chest wall which can be seen with Chilaiditi's syndrome in the right clinical setting. Incidental splenic calcified granulomas and cholecystectomy clips. Impression: 1. Worsening left lower lobe and new inferior left upper lobe consolidating/nonconsolidating airspace disease with new tiny effusion. Also evidence for GERD with air distended esophagus and fluid leveling. Rule out aspiration pneumonia. 2. Stable pulmonary emphysema, right lung postsurgical changes, scattered fibrosis/scarring, small hiatal hernia, and chronic bony findings. 3. New loop of air distended colon interposed between liver and lateral chest chest wall which can be seen with Chilaiditi's syndrome.
[2021-10-15] MEDS: solu-CORTEF 100MG IV SCH ×3 (00:16→17:34)
[2021-10-15 05:34] LABS: Absolute Neutrophil Ct (ANC) 14.92 (1.4-6.9); Basophil (Absolute #) 0.01 (0-0.4); Eosinophil (Absolute #) 0 (0-0.5); Hematocrit 37.2 % (35-47); Hemoglobin 12.4 gm/dl (12.0-16.0); Lymphocyte (Absolute #) 0.78 (1.0-4.6); Lymphocytes % 4.9 % (24.0-44.0); Mean Cell Volume 100.8 fl (78-100); Mean Corpuscular Hemoglobin 33.6 pg (26-32); Mean Corpuscular Hgb Concent. 33.3 g/dl (32-36); Mean Platelet Volume 9.3 fl (7.5-11.0); Monocyte (Absolute #) 0.11 (0.0-1.3); Monocytes % 0.7 % (0.0-12.0); Neutrophil % 94.3 % (36.0-66.0); Platelet Count 666 K/mm3 (150-450); Red Blood Count 3.69 M/mm3 (4.1-5.4); Red Cell Distribution Width 13.1 % (11.5-14.0); White Blood Count 15.8 K/mm3 (4.0-10.5)
[2021-10-15 06:05] LABS: ANION GAP 10.8 MEQ/L (5-15); BLOOD UREA NITROGEN 13 mg/dL (7-17); CHLORIDE 98 mmol/L (98-107); Calcium 8.7 mg/dL (8.4-10.2); Carbon Dioxide 29 mmol/L (22-30); Creatinine 1 0.34 mg/dL (0.52-1.04); EST GLOMERULAR FILTRATION RATE > 60.0 ML/MIN; Glucose 116 mg/dL (74-106); Potassium 4.1 mmol/L (3.5-5.1); SODIUM 134 mmol/L (137-145)
--- NOTE | 2021-10-15 08:32 | PCM.NOTE ---
Date and Time: 10/15/21829 Subjective Assessment: patient is feeling better, states she would really like to go home. reports a longstanding history of hiatal hernia and trouble eating and reflux. Objective Exam General Appearance: no apparent distress Neurologic Exam: alert Respiratory Exam: diminished breath sounds, prolonged expirations, rhonchi Cardiovascular Exam: regular rate/rhythm, normal heart sounds Gastrointestinal/Abdomen Exam: soft, No tenderness, No mass Extremity Exam: normal inspection, normal range of motion OBJECTIVE DATA Vital Signs: Vital Signs - 24 hr Temp Pulse Resp BP Pulse Ox 10/15/21 04:00 97.8 F 73 20 129/58 98 10/15/21 00:00 98.0 F 71 21 139/76 94 L 10/14/21 20:08 94 L 10/14/21 20:00 98.2 F 76 20 142/73 94 L 10/14/21 16:00 97.1 F 64 19 123/59 95 10/14/21 12:00 97.5 F 67 21 121/58 94 L 10/14/21 10:53 97 Pain Assessment - Last Documented Pain Intensity 0 Pain Scale Used 0-10 Pain Scale Intake and Output: Intake & Output 10/12/21 10/13/21 10/14/21 10/15/21 11:59 11:59 11:59 11:59 Intake Total 980 1120 Output Total 300 700 Balance 680 420 Weight 46.72 kg 48.5 kg Lab Results: Lab Results-Last 24 Hours 10/15/21 10/15/21 Range/Units 05:15 05:15 WBC 15.8 H (4.0-10.5) K/mm3 RBC 3.69 L (4.1-5.4) M/mm3 Hgb 12.4 (12.0-16.0) gm/dl Hct 37.2 (35-47) % MCV 100.8 H (78-100) fl MCH 33.6 H (26-32) pg MCHC 33.3 (32-36) g/dl RDW 13.1 (11.5-14.0) % Plt Count 666 H (150-450) K/mm3 MPV 9.3 (7.5-11.0) fl Gran % 94.3 H (36.0-66.0) % Eos # (Auto) 0 (0-0.5) Absolute Lymphs (auto) 0.78 L (1.0-4.6) Absolute Monos (auto) 0.11 (0.0-1.3) Lymphocytes % 4.9 L (24.0-44.0) % Monocytes % 0.7 (0.0-12.0) % Eosinophils % 0.0 (0.00-5.0) % Basophils % 0.1 (0.0-0.4) % Absolute Granulocytes 14.92 H (1.4-6.9) Basophils # 0.01 (0-0.4) Sodium 134 L (137-145) mmol/L Potassium 4.1 (3.5-5.1) mmol/L Chloride 98 (98-107) mmol/L Carbon Dioxide 29 (22-30) mmol/L Anion Gap 10.8 (5-15) MEQ/L BUN 13 (7-17) mg/dL Creatinine 0.34 L (0.52-1.04) mg/dL Estimated GFR > 60.0 ML/MIN Glucose 116 H (74-106) mg/dL Calcium 8.7 (8.4-10.2) mg/dL Radiology Exams: Radiology Procedures Category Date Time Status CHEST 1 VIEW (PORTABLE) Routine Exams 10/14/21 07:00 Completed CHEST 1 VIEW (PORTABLE) Stat Exams 10/13/21 11:08 Completed CHEST WITH CONTRAST [CT] Stat Exams 10/14/21 08:43 Completed Assessment/Plan (1) Pneumonia Current Visit: Yes Status: Acute Assessment & Plan: continue rocephin and zithromax, MBS pending to r/o aspiration Code(s): J18.9 - PNEUMONIA, UNSPECIFIED ORGANISM (2) Acute exacerbation of COPD with asthma Current Visit: No Status: Acute Assessment & Plan: nebs, steroids and antibiotics. clinically improving Code(s): J44.1 - CHRONIC OBSTRUCTIVE PULMONARY DISEASE W (ACUTE) EXACERBATION; J45.901 - UNSPECIFIED ASTHMA WITH (ACUTE) EXACERBATION
[2021-10-15] MEDS: PROTONIX 40 MG IV IV SCH (08:43)
[2021-10-15] MEDS: Ditropan XL 5 MG PO SCH (08:44)
[2021-10-15] MEDS: MYSOLINE 50MG PO SCH ×4 (08:44→22:26)
[2021-10-15] MEDS: Effexor XR 75 MG PO SCH (08:44)
[2021-10-15] MEDS: ROCEPHIN 1 Gm-D5w 50 ml Bag** 1 G/50 ML IVPB IV SCH (08:45)
[2021-10-15] MEDS: SYNTHROID 150 MCG PO SCH (08:45)
[2021-10-15] MEDS: Zithromax 500 MG/ 250 ML NaCl Premix 500 MG/250 ML IVPB IV SCH (09:43)
--- NOTE | 2021-10-15 10:45 | XRAY ---
Indication: Dysphagia. Modified barium swallow study performed by the Department of speech therapy with fluoroscopic assistance provided. Patient ingested multiple consistencies of liquids. Full report and recommendations will be reported separately. Approximately 38 seconds fluoroscopy used.
[2021-10-15] MEDS: TYLENOL 325 MG PO PRN (12:13)
[2021-10-16] MEDS: solu-CORTEF 100MG IV SCH ×3 (00:59→16:13)
[2021-10-16 06:12] LABS: Absolute Neutrophil Ct (ANC) 11.29 (1.4-6.9); Basophil (Absolute #) 0 (0-0.4); Eosinophil (Absolute #) 0 (0-0.5); Hematocrit 37.1 % (35-47); Hemoglobin 12.2 gm/dl (12.0-16.0); Lymphocyte (Absolute #) 0.82 (1.0-4.6); Lymphocytes % 6.7 % (24.0-44.0); Mean Cell Volume 101.9 fl (78-100); Mean Corpuscular Hemoglobin 33.5 pg (26-32); Mean Corpuscular Hgb Concent. 32.9 g/dl (32-36); Mean Platelet Volume 9.3 fl (7.5-11.0); Monocyte (Absolute #) 0.18 (0.0-1.3); Monocytes % 1.5 % (0.0-12.0); Neutrophil % 91.8 % (36.0-66.0); Platelet Count 768 K/mm3 (150-450); Red Blood Count 3.64 M/mm3 (4.1-5.4); Red Cell Distribution Width 13.1 % (11.5-14.0); White Blood Count 12.3 K/mm3 (4.0-10.5)
[2021-10-16 06:20] LABS: ANION GAP 12.9 MEQ/L (5-15); BLOOD UREA NITROGEN 16 mg/dL (7-17); CHLORIDE 100 mmol/L (98-107); Calcium 8.6 mg/dL (8.4-10.2); Carbon Dioxide 28 mmol/L (22-30); Creatinine 1 0.41 mg/dL (0.52-1.04); EST GLOMERULAR FILTRATION RATE > 60.0 ML/MIN; Glucose 127 mg/dL (74-106); Potassium 4.2 mmol/L (3.5-5.1); SODIUM 137 mmol/L (137-145)
[2021-10-16] MEDS: Ditropan XL 5 MG PO SCH (08:05)
[2021-10-16] MEDS: PROTONIX 40 MG IV IV SCH (08:05)
[2021-10-16] MEDS: SYNTHROID 150 MCG PO SCH (08:05)
[2021-10-16] MEDS: MYSOLINE 50MG PO SCH ×3 (08:05→16:17)
[2021-10-16] MEDS: Effexor XR 75 MG PO SCH (08:05)
[2021-10-16] MEDS: Zithromax 500 MG/ 250 ML NaCl Premix 500 MG/250 ML IVPB IV SCH (08:06)
[2021-10-16] MEDS: ROCEPHIN 1 Gm-D5w 50 ml Bag** 1 G/50 ML IVPB IV SCH (09:26)
[2021-10-16 11:43] VITALS: BP 127/58; PULSE 87; O2SAT 89
--- NOTE | 2021-10-16 15:03 | PCM.DS ---
Discharge Summary Date of Admission: 10/13/21 13:04 Admitting Physician: JF ZAMUDIO Primary Care Provider: HARVINDER GILMORE Allergies Allergies tapentadol HCl [From Nucynta] Adverse Reaction (Severe, Verified 10/13/21 10:59) disoriented states "took for severe arthritis,fever,confusion,couldn't sleep" Hospital Summary - Hospital Course Hospital Course: Pt is a 70 yo female pt of Dr. Corey Gilmore and Dr. Madeline Gilmore who was admitted through ER wtih Pneumonia and COPD. CXR with airspace dz. She was started on rocephin, zithromax, and solu-cortef IV. Initial WBC were 16.0, but today are 12.3. Her CXR evolved to show worsening consolidation. CT chest showed worse LLL and new inferior MATIAS airspace dz; r/o aspiration. She passed her modified barium swallow study. She was found to have a UTI, culture is pos for G neg rods. ID and sensitivity pending. Today she is feeling much better. She has been up alone to the bathroom and walked without dizziness. She will be sent home with O2 if she qualifies. She lives with her daughter, son, and his two children "and they won't let me do a thing" (ie, they will look after her well). Home today and po cefdinir. I advised we may call to change the antibiotic, based on culture results. - Vitals & Intake/Output Vital Signs: Vital Signs Temperature 97.8 F 10/16/21 11:41 Pulse Rate 87 10/16/21 11:41 Respiratory Rate 18 10/16/21 11:41 Blood Pressure 127/58 10/16/21 11:41 O2 Sat by Pulse Oximetry 89 L 10/16/21 11:41 Intake & Output: Intake & Output 10/14/21 10/15/21 10/16/21 10/17/21 11:59 11:59 11:59 11:59 Intake Total 980 1120 2000 120 Output Total 665 274 6400 Balance 680 420 400 120 Weight 48.5 kg 50 kg 49.9 kg - Lab Result Diagrams: 10/16/21 05:32 10/16/21 05:32 Lab Results-Last 24 Hrs: Lab Results-Last 24 Hours 10/16/21 10/16/21 Range/Units 05:32 05:32 WBC 12.3 H (4.0-10.5) K/mm3 RBC 3.64 L (4.1-5.4) M/mm3 Hgb 12.2 (12.0-16.0) gm/dl Hct 37.1 (35-47) % MCV 101.9 H (78-100) fl MCH 33.5 H (26-32) pg MCHC 32.9 (32-36) g/dl RDW 13.1 (11.5-14.0) % Plt Count 768 H (150-450) K/mm3 MPV 9.3 (7.5-11.0) fl Gran % 91.8 H (36.0-66.0) % Eos # (Auto) 0 (0-0.5) Absolute Lymphs (auto) 0.82 L (1.0-4.6) Absolute Monos (auto) 0.18 (0.0-1.3) Lymphocytes % 6.7 L (24.0-44.0) % Monocytes % 1.5 (0.0-12.0) % Eosinophils % 0.0 (0.00-5.0) % Basophils % 0.0 (0.0-0.4) % Absolute Granulocytes 11.29 H (1.4-6.9) Basophils # 0 (0-0.4) Sodium 137 (137-145) mmol/L Potassium 4.2 (3.5-5.1) mmol/L Chloride 100 (98-107) mmol/L Carbon Dioxide 28 (22-30) mmol/L Anion Gap 12.9 (5-15) MEQ/L BUN 16 (7-17) mg/dL Creatinine 0.41 L (0.52-1.04) mg/dL Estimated GFR > 60.0 ML/MIN Glucose 127 H (74-106) mg/dL Calcium 8.6 (8.4-10.2) mg/dL Micro Results-Entire Visit: Microbiology 10/14/21 10:08 Gram Stain - Final Sputum - Expectorant Sputum Culture - Preliminary GRAM NEGATIVE ID AND SENSITIVITY PENDING 10/13/21 11:30 Blood Culture - Preliminary Blood NO GROWTH TO DATE 10/13/21 11:00 Blood Culture - Preliminary Blood NO GROWTH TO DATE - Radiology Exams Ordered Rad Exams-Entire Visit: Radiology Procedures Category Date Time Status MODIFIED BARIUM SWALLOW EXAM Routine Exams 10/15/21 10:19 Completed - Procedures and Test Procedures and Tests throughout Hospitalization: Therapy Orders & Screens 10/13/21 12:43 Oxygen Nasal Cannula 2 lpm Comment: 10/13/21 12:47 Respiratory Therapy Consult ROUTINE Comment: Reason For Exam: 10/14/21 14:02 Speech Therapy Eval & Treat [ST Eval & Treat ( Order)] .as ordered Comment: Physician Instructions: Reason For Exam: pneumonia, ?aspiration Evaluate: Yes Treat: Yes Reason for Eval: ct findings Diagnosis: PNEUMONIA 10/14/21 16:33 Modified Barium Swallow Eval .as ordered Comment: Physician Instructions: Reason For Exam: Discharge Exam General Appearance: no apparent distress, alert Neurologic Exam: oriented x 3, cooperative Eye Exam: eyes nml inspection Ears, Nose, Throat Exam: moist mucous membranes Neck Exam: normal inspection Respiratory Exam: normal breath sounds, lungs clear, No respiratory distress, No crackles/rales, No rhonchi, No wheezing Cardiovascular Exam: regular rate/rhythm, normal heart sounds, No murmur Gastrointestinal/Abdomen Exam: soft, No normal bowel sounds (hypoactive but present), No tenderness, No distention, No mass, No guarding, No splenomegaly Back Exam: normal inspection, No rash Extremity Exam: normal inspection, No pedal edema, No swelling Skin Exam: normal color, warm, dry, No rash Final Diagnosis/Problem List - Final Discharge Diagnosis/Problem (1) Pneumonia Current Visit: Yes Status: Acute Assessment & Plan: Much improved clinically, and leukocytosis is almost down to normal (even with pt on steroids). Home on 7d of po cefdinir. F/u with PCP this week. Code(s): J18.9 - PNEUMONIA, UNSPECIFIED ORGANISM (2) UTI (urinary tract infection) Current Visit: No Status: Acute Assessment & Plan: culture and sensitivity pending. home on cefdinir. Code(s): N39.0 - URINARY TRACT INFECTION, SITE NOT SPECIFIED (3) COPD (chronic obstructive pulmonary disease) Current Visit: Yes Status: Chronic - Discharge Disposition: Home, Self-Care Condition: Stable Prescriptions: New Lactobacillus Acidophilus [Acidophilus TABLET] 1 tab PO TID #30 tablet Prednisone 20 mg [Deltasone 20 mg] 20 mg PO DAILY #17 tablet Cefdinir [Omnicef 300 mg] 300 mg PO BID 7 Days #14 tab Continue Venlafaxine HCl ER 75 mg [Effexor XR 75 MG] 150 mg PO DAILY Primidone 50 MG [Mysoline 50Mg] 50 mg PO QID Oxybutynin Chloride 10 mg Xl [Ditropan Xl 10 MG] 10 mg PO DAILY ALPRAZolam 1 MG [Xanax 1 mg] 0.5 mg PO TIDPRN Fluticasone/Salmeterol [Advair 250-50 Diskus] 1 each IH BID Levothyroxine Sodium 150 mcg PO DAILY Pantoprazole Sodium 40 mg PO BID Instructions: Pneumonia in Adults Forms: Discharge Instructions
== END 2021-10-16 16:32 | disposition home or self-care (01) ==
LOC: ED 10:32 → MED SURG 13:04
PROVIDERS: ADMIT Family Medicine; ATTEND Family Medicine
DX: J18.9 Pneumonia, unspecified organism (principal); N39.0 Urinary tract infection, site not specified; J44.9 Chronic obstructive pulmonary disease, unspecified; J45.901 Unspecified asthma with (acute) exacerbation; K21.9 Gastro-esophageal reflux disease without esophagitis; Z20.828 Contact with and (suspected) exposure to other viral communicable diseases; Z79.899 Other long term (current) drug therapy; Z72.0 Tobacco use
CPT/HCPCS: 0241U; 36000; 36415; 71045; 71260; 74230; 80048; 80053; 81015; 83605; 83735; 84145; 84484; 85025; 85027; 87040; 87070; 87077; 87186; 92611; 93005; 93041; 94760; 96365; 99284; G0378; J0456; J0696; J1720; A9270-GY